=== PATIENT | female | born 1945 | race Two or more races ===

== ENCOUNTER → 2023-02-16 | Outpatient (CLI) | payer OTHER ==
[2023-02-16 11:18] LABS: Basophils # (auto) 0 10 ^3/uL (0-0.2); Basophils % (auto) 0.5 % (0.0-2.0); Eosinophils # (auto) 0.1 10 ^3/uL (0-0.8); Hematocrit 42.3 % (36.0-46.0); Hemoglobin 14.2 g/dL (12.2-16.2); Lymphocytes # (auto) 2.7 10 ^3/uL (0.4-5.4); Lymphocytes % (auto) 42.6 % (10.0-50.0); Mean Corpuscular Hemoglobin 33.3 pg (28.0-32.0); Mean Corpuscular Hgb Conc. 33.6 g/dL (32.0-36.0); Mean Corpuscular Volume 99.2 fL (80.0-100.0); Monocytes # (auto) 0.4 10 ^3/uL (0-1.3); Monocytes % (auto) 6.8 % (0.0-12.0); Neutrophils # (auto) 3.1 10 ^3/uL (1.6-8.6); Neutrophils % (auto) 48.1 % (37.0-80.0); Nucleated Red Blood Cells % 0.3 %; Red Blood Cells 4.26 10^6/uL (4.0-5.20); Red Cell Distribution Width 12.8 % (11.8-14.3); White Blood Cell 6.4 10^3/uL (4.4-10.8)
[2023-02-16 11:24] LABS: Urine Bacteria NONE SEEN /hpf (None Seen); Urine Blood Negative /uL (Negative); Urine Specific Gravity 1.019 (1.001-1.035); Urine WBC 6 /hpf (0 - 5)
[2023-02-16 12:25] LABS: Potassium 4.6 mmol/L (3.5-5.1)
[2023-02-16 12:35] LABS: Albumin 4.2 g/dL (3.4-5.0); BUN/Creatinine Ratio 15.9 (10.0-20.0); Bilirubin, Total 0.6 mg/dL (0.2-1.0); Total Protein 7.5 g/dL (6.4-8.2)
== END | disposition home or self-care (01) ==
LOC: LAB 10:41
PROVIDERS: ATTEND Nurse Practitioner
DX: I10 Essential (primary) hypertension (principal); E78.5 Hyperlipidemia, unspecified; R73.9 Hyperglycemia, unspecified
CPT/HCPCS: 36415; 80053; 80061; 81001; 83036; 84443; 85025

== ENCOUNTER → 2023-09-17 | Outpatient (CLI) | payer OTHER ==
[2023-09-17 12:10] LABS: Hematocrit 41.7 % (36.0-46.0); Mean Corpuscular Hemoglobin 33.5 pg (28.0-32.0); Mean Corpuscular Hgb Conc. 33.6 g/dL (32.0-36.0); Mean Corpuscular Volume 99.8 fL (80.0-100.0); Red Blood Cells 4.18 10^6/uL (4.0-5.20); White Blood Cell 7.3 10^3/uL (4.4-10.8)
[2023-09-17 12:13] LABS: Band Neutrophils % (manual) 0; Basophils % (manual) 0 (0.0-2.0); Blast Cells 0; Metamyelocytes % 0; Myelocytes % 0; Promyelocytes % 0; Reactive Lymphocytes 0
[2023-09-17 12:50] LABS: Alanine Aminotransferase 41 U/L (7-40); Albumin 4.5 g/dL (3.2-4.8); Alkaline Phosphatase 43 U/L (46-116); Anion Gap 6 (5-15); Aspartate Aminotransferase 41 U/L (13-40); BUN/Creatinine Ratio 10.9 (10.0-20.0); Blood Urea Nitrogen 15 mg/dL (9-23); Calcium 9.8 mg/dL (8.5-10.1); Carbon Dioxide 24 mmol/L (20-30); Chloride 105 mmol/L (98-107); Cholesterol 140 mg/dL (< 200); Glucose 102 mg/dL (74-106); LDL Cholesterol 68 mg/dL (< 100); Sodium 135 mmol/L (136-145); Triglycerides 236 mg/dL (< 150)
[2023-09-17 12:51] LABS: Bilirubin, Total 0.7 mg/dL (0.2-1.0); HDL Cholesterol 35 mg/dL (40-59); Total Protein 6.8 g/dL (5.7-8.2)
[2023-09-17 13:17] LABS: Urine Bacteria FEW /hpf (None Seen); Urine Blood Negative /uL (Negative); Urine Clarity Clear (Clear); Urine Color Colorless (Yellow); Urine Protein, UAD Negative (Negative); Urine Specific Gravity 1.005 (1.001-1.035); Urine Urobilinogen Normal (Negative); Urine WBC <1 /hpf (0 - 5); Urine pH 6.5 (5.0-8.0)
[2023-09-17 13:41] LABS: Eosinophils % (manual) 3 (0-7); Lymphocytes % (manual) 65 (10.0-50.0); Monocytes % (manual) 7 (0-12); Platelet Estimate Adequate
== END | disposition home or self-care (01) ==
LOC: LAB 11:49
PROVIDERS: ATTEND Nurse Practitioner
DX: I10 Essential (primary) hypertension (principal); E78.5 Hyperlipidemia, unspecified; R73.9 Hyperglycemia, unspecified
CPT/HCPCS: 36415; 80053; 80061; 81001; 83036; 84443; 85007; 85027

== ENCOUNTER 2024-09-24 14:51 | Inpatient (IN) | payer OTHER ==
[~2024-09-24] VITALS: Ht 177.8 cm; Wt 81.6 kg
[~2024-09-24 14:51] MED LIST: ALBU108A5 IN; AMLO1TAB22 PO; ATOR20TA PO; AZIT-43 PO; BENZ100C97 PO; CITA10TA5 PO; DOXY100C4 PO; HYDR1CAP27 PO; METH4TAB44 PO; OLME40TA9 PO; SERT-206 PO
--- NOTE | 2024-09-24 15:33 | ED.PDOC ---
HPI Comments 79 y.o female with PMHx of HTN, hyperlipidemia, gallstones, and anxiety, presents to the ED for a chief complaint of right sided chest, shoulder, back and head pain. Patient states she recently had chest congestion, went to see her PCP today and was sent to the ED due to EKG abnormalities. At this time, patient denies any pain, SOB, nausea, vomiting, fever, chills, leg swelling or pain. She denies any tobacco use. States she has a cough and feels like there is congestion in her chest, but is unable to cough it up. States she was prescribed medication by her primary physician, however it did not alleviate her symptoms. Chief Complaint: Chest Pain Time Seen by MD: 15:03 Primary Care Provider: arcadio Blank Notes: Medications, Allergies Allergies: Coded Allergies: NO KNOWN ALLERGIES (Unverified , 09/24/24) Information Source: Patient Mode of Arrival: Wheelchair Severity: Moderate Timing: Hours Duration: Since onset Location: Chest (R) Radiation: Back, Shoulder (R) Quality: Other (soreness ) Onset: At Rest Cardiac Risk Factors: Hyperlipidemia, HTN PE Risk Factors: None History of: None Modifying Factors: Nothing Associated Signs and Symptoms: None Past Medical History PAST MEDICAL HISTORY: Anxiety, Gallstones, High Lipids, HTN Surgical History: Tubal Ligation Surgical History (Other): gallstones WOOD CRAFTSMAN History: No Pertinent WOOD CRAFTSMAN History Family History Family History: Reviewed,noncontributory to illness Social History Smoker: Non-Smoker Alcohol: Denies ETOH Use Drugs: Denies Drug Use Lives In: Home Constitutional: denies: chills, diaphoresis, fatigue, fever, malaise, sweats, weakness, others EENTM: reports: nose congestion; denies: blurred vision, double vision, ear b leeding, ear discharge, ear drainage, ear pain, ear ringing, eye pain, eye redness, hearing loss, mouth pain, mouth swelling, nasal discharge, nose bleeding, nose pain, photophobia, tearing, throat pain, throat swelling, voice changes, others Respiratory: denies: cough, hemoptysis, orthopnea, SOB at rest, shortness of breath, SOB with excertion, stridor, wheezing, others Cardiovascular: reports: chest pain; denies: dizzy spells, diaphoresis, Dyspnea on exertion, edema, irregular heart beat, left arm pain, lightheadedness, palpitations, PND, syncope, others Gastrointestinal: denies: abdomen distended, abdominal pain, blood streaked bowels, constipated, diarrhea, dysphagia, difficulty swallowing, hematemesis, melena, nausea, poor appetite, poor fluid intake, rectal bleeding, rectal pain, vomiting, others Genitourinary: denies: abnormal vagina bleeding, burning, dyspareunia, dysuria, flank pain, frequency, hematuria, incontinence, pain, , vagina discharge, urgency, others Neurological: denies: dizziness, fainting, headache, left sided numbness, left sided weakness, numbness, paresthesia, pre-existing deficit, right sided numbn ess, right sided weakness, seizure, speech problems, tingling, tremors, weakness, others Musculoskeletal: denies: back pain, gout, joint pain, joint swelling, muscle pain, muscle stiffness, neck pain, others Integumetry: denies: bruises, change in color, change in hair/nails, dryness, laceration, lesions, lumps, rash, wounds, others Allergic/Immunocompromised: denies: Difficulty Healing, Frequent Infections, Hives, Itching, others Hematologic/Lymphatic: denies: anemia, blood clots, easy bleeding, easy bruising, swollen glands, others Endocrine: denies: excessive hunger, excessive sweating, excessive thirst, excessive urination, flushing, intolerance to cold, intolerance to heat, unexplained weight gain, unexplained weight loss, others Psychiatric: denies: anxiety, bipolar disorder, depression, hopeless, panic disorder, schizophrenia, sleepless, suicidal, others All Other Systems: Reviewed and Negative Physical Exam General Appearance: No Apparent Distress HEENT: Other (Vitals symmetric, moist mucous membranes) Neck: Full Range of Motion, Non-Tender, Normal Inspection, Supple Respiratory: Decreased Breath Sounds, No Accessory Muscle Use, No Respiratory Distress Cardiovascular: No Edema, No JVD, Regular Rate/Rhythm Breast Exam: Deferred Gastrointestinal: Non Tender, Soft Genitalia: Deferred Pelvic: Deferred Rectal: Deferred Extremities: No calf tenderness, Normal inspection, Normal range of motion, Non-tender, No pedal edema Neurologic: Alert (Oriented x3), Normal Affect, Normal Mood, Other (Moves all extremities. No gross focal deficit.) Cerebellar Function: NOT DONE Reflexes: NOT DONE Skin: Dry, Normal Color, Warm Lymphatic: NOT DONE EKG EKG #1: Comments Sinus rhythm, rate 84, normal NH interval, QRS prolonged at 145, QTC prolonged at 482, normal axis, left bundle-branch block, inferior and lateral T-wave inversion with ST depression EKG #2: Comments Sinus rhythm, rate 77, normal NH interval, QRS and QTC prolonged, normal axis, left bundle-branch block, T-waves are now upright in 1, 2 and aVL. This represents a change from EKG 1. Was a procedure done? Was a procedure done?: No CP Differential Dx Differential Diagnosis: Angina, Anxiety / Panic Attack, Electrolyte Disorder, NE, Pulmonary Embolus Differential Diagnosis: CHF Differential Diagnosis: Angina, Chest Wall Pain, Cholelithiasis, Costochondritis, Esophageal reflux/spasm, Gastritis, Myocardial Infarction, Pericarditis, Pneumonia X-Ray, Labs, Meds, VS Vital Signs Date Time Temp Pulse Resp B/P (MAP) Pulse Ox O2 Delivery O2 Flow Rate FiO2 09/24/24 15:44 77 09/24/24 15:08 98.0 77 17 137/60 (85) 97 09/24/24 14:57 84 Lab Test 09/24/24 18:22 09/24/24 16:27 09/24/24 15:24 09/24/24 00:00 Range/Units Troponin I High Sensitivity 20 19 18 </=34 ng/L White Blood Count 8.1 4.4-10.8 10^3/uL Red Blood Count 4.51 4.0-5.20 10^6/uL Hemoglobin 14.9 12.2-16.2 g/dL Hematocrit 44.5 36.0-46.0 % Mean Corpuscular Volume 98.6 80.0-100.0 fL Mean Corpuscular Hemoglobin 33.0 H 28.0-32.0 pg Mean Corpuscular Hemoglobin Concent 33.5 32.0-36.0 g/dL Red Cell Distribution Width 13.1 11.8-14.3 % Platelet Count 150 140-450 10^3/uL Mean Platelet Volume 8.6 6.9-10.8 fL Neutrophils (%) (Auto) 49.5 37.0-80.0 % Lymphocytes (%) (Auto) 43.1 10.0-50.0 % Monocytes (%) (Auto) 6.3 0.0-12.0 % Eosinophils (%) (Auto) 0.8 0.0-7.0 % Basophils (%) (Auto) 0.3 0.0-2.0 % Neutrophils # (Auto) 4.0 1.6-8.6 10 ^3/uL Lymphocytes # (Auto) 3.5 0.4-5.4 10 ^3/uL Monocytes # (Auto) 0.5 0-1.3 10 ^3/uL Eosinophils # (Auto) 0.1 0-0.8 10 ^3/uL Basophils # (Auto) 0 0-0.2 10 ^3/uL Nucleated Red Blood Cells 0.1 % Sodium Level 141 136-145 mmol/L Potassium Level 4.3 3.5-5.1 mmol/L Chloride Level 105 98-107 mmol/L Carbon Dioxide Level 28 20-31 mmol/L Anion Gap 8 5-15 Blood Urea Nitrogen 20 9-23 mg/dL Creatinine 1.59 H 0.550-1.02 mg/dL Glomerular Filtration Rate Calc 33 >90 mL/min BUN/Creatinine Ratio 12.6 10.0-20.0 Serum Glucose 159 H 74-106 mg/dL Calcium Level 10.8 H 8.7-10.4 mg/dL Magnesium Level 1.9 1.6-2.6 mg/dL Total Bilirubin 0.4 0.2-1.0 mg/dL Aspartate Amino Transferase (AST) 39 13-40 U/L Alanine Aminotransferase (ALT) 65 H 7-40 U/L Alkaline Phosphatase 51 46-116 U/L B-Type Natriuretic Peptide 34.59 0-100 pg/mL Total Protein 6.5 5.7-8.2 g/dL Albumin 4.7 3.2-4.8 g/dL Urine Color Light-yellow Yellow Urine Clarity Clear Clear Urine pH 7.0 5.0-9.0 Urine Specific [place] 1.015 1.001-1.035 Urine Protein Negative Negative Urine Ketones Negative Negative Urine Blood Negative Negative /uL Urine Nitrite Negative Negative Urine Bilirubin Negative Negative Urine Urobilinogen Normal Negative mg/dL Urine Leukocyte Esterase 1+ Negative /uL Urine RBC 2 0 - 4 /hpf Urine Microscopic WBC 2 0-5 /HPF Urine Squamous Epithelial Cells Few <5 /hpf Urine Bacteria None seen None Seen /hpf Urine Glucose Normal Normal mg/dL [facility] [id number] [facility] [address] Ph: [phone] DIAGNOSTIC IMAGING Diagnostic Imaging Report : [id number] Signed PATIENT: CECILIO HUNTER ACCT: [id number] UNIT: [id number] : 1945 LOC: ER ROOM / BED: / AGE / SEX: 79 / F ADM STATUS: REG ER SERVICE 1500 ORDERING PHYSICIAN: CARLI WESTON MD PROCEDURE(s): CXRP - CHEST PORTABLE REASON: CP ORDER NUMBER(s): [id number], ACCESSION NUMBER(s): [id number] CHEST RADIOGRAPH Indication: CP Technique: Single frontal view of the chest was obtained COMPARISON: None FINDINGS: Lines and Tubes: None Lungs: Bibasilar atelectasis versus consolidation. Hypoinflated lungs. Pleura: No effusion. No pneumothorax. Cardiomediastinal contours: Unremarkable Bones: Unremarkable IMPRESSION: 1. Bibasilar atelectasis versus consolidation. Hypoinflated lungs. ATED BY: GENARO RUIZ MD DICTATED DATE/TIME: 09/24/241540 SIGNED BY: GENARO RUIZ MD SIGNED DATE/TIME: 09/24/241540 CC: X-Ray, Labs, Meds, VS Comment 79 y.o female with PMHx of HTN, hyperlipidemia, gallstones, and anxiety complaining of chest congestion and right-sided chest pain Vitals unremarkable Exam remarkable for diminished breath sounds at both bases Rhythm strip independently interpreted by me: Sinus rhythm, rate 77, no ectopy. Chest x-ray IMPRESSION: 1. Bibasilar atelectasis versus consolidation. Hypoinflated lungs. CBC unremarkable, metabolic panel remarkable for creatinine 1.59, BNP and serial troponins negative, lactate pending Patient treated with the following in the ED: Aspirin 325 mg p.o., Rocephin 1 g IV, Zithromax 1 g IV On re-evaluation, patient is resting comfortably with stable vitals. Plan is to admit the patient for IV antibiotics and Cardiology evaluation due to dynamic EKG changes. Time of 1ST Reevaluation: 15:33 Reevaluation 1ST: Unchanged Patient Education/Counseling: Diagnosis, Treatment, Prognosis Family Education/Counseling: No Family Present Departure 1 Departure Time of Disposition: 20:36 Impression: Primary Impression: Chest pain with high risk of acute coronary syndrome Additional Impression: Pneumonia Qualified Codes: J18.9 - Pneumonia, unspecified organism Disposition: ADMITTED INPATIENT Admit to: Tele Condition: Guarded Critical Care Note Critical Care Time?: No Stability Stability form required: No Heart Score Heart Score: Heart Score Response (Comments) Value History Slightly Suspicious [address]-Deviation 2 Age >65 2 Risk Factors >3 or Hx ASHD 2 Troponin Normal limit 0 Total 6 I personally scribed for DANIEL HERZOG MD ([facility]) on 09/24/24 at 15:33. Electronically submitted by Dona Santana ([facility]). I personally scribed for DANIEL HERZOG MD ([facility]) on 09/24/24 at 16:45. Electronically submitted by Dona Santana ([facility]). DANIEL HERZOG MD Sep 24, 2024 15:33
[2024-09-24 15:42] LABS: Basophils # (auto) 0 10 ^3/uL (0-0.2); Basophils % (auto) 0.3 % (0.0-2.0); Eosinophils # (auto) 0.1 10 ^3/uL (0-0.8); Eosinophils % (auto) 0.8 % (0.0-7.0); Hematocrit 44.5 % (36.0-46.0); Hemoglobin 14.9 g/dL (12.2-16.2); Lymphocytes # (auto) 3.5 10 ^3/uL (0.4-5.4); Lymphocytes % (auto) 43.1 % (10.0-50.0); Mean Corpuscular Hgb Conc. 33.5 g/dL (32.0-36.0); Mean Corpuscular Volume 98.6 fL (80.0-100.0); Monocytes # (auto) 0.5 10 ^3/uL (0-1.3); Monocytes % (auto) 6.3 % (0.0-12.0); Neutrophils % (auto) 49.5 % (37.0-80.0); Nucleated Red Blood Cells % 0.1 %; Platelet Count (auto) 150 10^3/uL (140-450); Red Blood Cells 4.51 10^6/uL (4.0-5.20); Red Cell Distribution Width 13.1 % (11.8-14.3); White Blood Cell 8.1 10^3/uL (4.4-10.8)
--- NOTE | 2024-09-24 15:43 | DVH ---
CHEST RADIOGRAPH Indication: CP Technique: Single frontal view of the chest was obtained COMPARISON: None FINDINGS: Lines and Tubes: None Lungs: Bibasilar atelectasis versus consolidation. Hypoinflated lungs. Pleura: No effusion. No pneumothorax. Cardiomediastinal contours: Unremarkable Bones: Unremarkable IMPRESSION: 1. Bibasilar atelectasis versus consolidation. Hypoinflated lungs.
--- NOTE | 2024-09-24 15:46 | ECG ---
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
[2024-09-24 16:03] LABS: Albumin 4.7 g/dL (3.2-4.8); Alkaline Phosphatase 51 U/L (46-116); Anion Gap 8 (5-15); Aspartate Aminotransferase 39 U/L (13-40); BUN/Creatinine Ratio 12.6 (10.0-20.0); Bilirubin, Total 0.4 mg/dL (0.2-1.0); Blood Urea Nitrogen 20 mg/dL (9-23); Carbon Dioxide 28 mmol/L (20-31); Chloride 105 mmol/L (98-107); Magnesium 1.9 mg/dL (1.6-2.6); Potassium 4.3 mmol/L (3.5-5.1); Sodium 141 mmol/L (136-145)
[2024-09-24 16:04] LABS: Total Protein 6.5 g/dL (5.7-8.2)
[2024-09-24 16:12] LABS: Alanine Aminotransferase 65 U/L (7-40); Calcium 10.8 mg/dL (8.7-10.4); Glucose 159 mg/dL (74-106)
[2024-09-24 17:23] LABS: Urine Bacteria None Seen /hpf (None Seen)
[2024-09-24 18:31] LABS: Urine Blood Negative /uL (Negative); Urine Clarity Clear (Clear); Urine Color Light-Yellow (Yellow); Urine Protein, UAD Negative (Negative); Urine Specific Gravity 1.015 (1.001-1.035); Urine Squamous Epithelial Cell FEW /hpf (<5); Urine Urobilinogen Normal (Negative); Urine WBC 2 /HPF (0-5)
[2024-09-24] MEDS ORDERED: NITROGLYCERIN 0.4 MG SL TAB SL PRN (22:15)
[2024-09-24] MEDS ORDERED: HYDROcodone-ACET 5/325MG TAB PO PRN (22:15)
[2024-09-24] MEDS ORDERED: MORPHINE SULFATE INJ 2 MG/ml SYRG IV PRN (22:15)
[2024-09-25 01:25] LABS: Rapid Influenza A Negative (Negative); Rapid Influenza B Negative (Negative)
[2024-09-25 01:26] LABS: COVID19 ANTIGEN SOFIA FIA NEGATIVE (NEGATIVE)
[2024-09-25] MEDS: CYCLOBENZAPRINE HCL 10 MG TAB PO ONE (01:29)
[2024-09-25] MEDS: ASPirin 325 MG TAB PO ONE (01:29)
[2024-09-25] MEDS: cefTRIAXone 1GM/50ML D5W 50 ML IV ONE (01:42)
[2024-09-25] MEDS: SODIUM CHLORIDE 0.9% 1,000 ML IV ONE (01:42)
--- NOTE | 2024-09-25 01:51 | DVHHPRES ---
History of Present Illness Resident Creating Document: LÁZRAO LOPEZ Reason for Visit: CHEST PAIN History of Present Illness An 79-year-old female with a past medical history of hypertension, hyperlipidemia, gallstones, and anxiety presents to the emergency department with right-sided chest, shoulder, and back pain, which she describes as a muscle contraction radiating to the neck and chest. She reports that the area felt swollen, though no significant edema was observed. The pain has been present for a while, but she sought evaluation at urgent care earlier today, where an abnormal EKG prompted her transfer to the ED for further evaluation. On arrival, she denies associated symptoms such as shortness of breath, fever, chills, nausea, vomiting, or leg swelling. She does report a cough with a sensa tion of congestion in her chest, though she is unable to expectorate. She denies tobacco use. Home meds: Amlodipine 5 mg per day, citalopram 10 mg per day, olmesartan+hydrochlorothiazide, albuterol per needed Cardiovascular: HTN, hyperipidemia Hepatobiliary: Cholelithiasis Psych: Anxiety Past Surgical History: Tubal Ligation Review of Systems Constitutional: No: Fever, Chills, Sweats, Weakness, Malaise, Other Eyes: No: Pain, Vision change, Conjunctivae inflammation, Eyelid inflammation, Other, Redness ENT: No: Ear pain, Ear discharge, Nose pain, Nose discharge, Nose congestion, Mouth pain, Mouth swelling, Throat pain, Throat swelling, Other Respiratory: Cough; No: Dry, Shortness of breath, SOB with excertion, Wheezing, Hemoptysis, Pleuritic Pain, Sputum, Wheezing, Other Cardiovascular: Chest Pain; No: Palpitations, Orthopnea, Paroxysmal Noc. Dyspnea, Edema, Lt Headedness, Other Gastrointestinal: No: Nausea, Vomiting, Abdominal Pain, Diarrhea, Constipation, Melena, Hematochezia, Other Genitourinary: No Dysuria, No Frequency, No Incontinence, No Hematuria, No Retention, No Other Musculoskeletal: No: other, neck pain, shoulder pain, arm pain, back pain, hand pain, leg pain, foot pain Skin: No: Rash, Lesions, Jaundice, Bruising, Other Neurological: No: Weakness, Numbness, Incoordination, Change in speech, Confusion, Seizures, Other Allergies: Coded Allergies: NO KNOWN ALLERGIES (Unverified , 09/24/24) Medications Current Medications Medications Dose Ordered Sig/Josué Route Start Time Stop Time Status Last Admin Dose Admin Morphine Sulfate 2 mg Q30M PRN IV 09/24/24 22:15 Nitroglycerin 0.4 mg Q5MINP PRN SL 09/24/24 22:15 Ceftriaxone Sodium 50 ml @ 100 mls/hr Q24H IV 09/25/24 09:00 Azithromycin 250 ml @ 125 mls/hr DAILY IV 09/25/24 10:00 Acetaminophen/ Hydrocodone Bitart 1 tab Q6HPRN PRN PO 09/24/24 22:15 Exam Vital Signs Vital Signs Date Time Temp Pulse Resp B/P (MAP) Pulse Ox O2 Delivery O2 Flow Rate FiO2 09/24/24 21:47 98.6 78 16 147/74 (98) 99 98.6 Labs/Xrays Labs Test 09/25/24 00:00 09/24/24 20:39 09/24/24 18:22 09/24/24 15:24 Range/Units Influenza Type A Antigen Negative Negative Influenza Type B Antigen Negative Negative SARS-CoV-2 Antigen (Rapid) Negative NEGATIVE Lactic Acid Level 1.7 0.4-2.0 mmol/L Troponin I High Sensitivity 20 </=34 ng/L White Blood Count 8.1 4.4-10.8 10^3/uL Red Blood Count 4.51 4.0-5.20 10^6/uL Hemoglobin 14.9 12.2-16.2 g/dL Hematocrit 44.5 36.0-46.0 % Mean Corpuscular Volume 98.6 80.0-100.0 fL Mean Corpuscular Hemoglobin 33.0 H 28.0-32.0 pg Mean Corpuscular Hemoglobin Concent 33.5 32.0-36.0 g/dL Red Cell Distribution Width 13.1 11.8-14.3 % Platelet Count 150 140-450 10^3/uL Mean Platelet Volume 8.6 6.9-10.8 fL Neutrophils (%) (Auto) 49.5 37.0-80.0 % Lymphocytes (%) (Auto) 43.1 10.0-50.0 % Monocytes (%) (Auto) 6.3 0.0-12.0 % Eosinophils (%) (Auto) 0.8 0.0-7.0 % Basophils (%) (Auto) 0.3 0.0-2.0 % Neutrophils # (Auto) 4.0 1.6-8.6 10 ^3/uL Lymphocytes # (Auto) 3.5 0.4-5.4 10 ^3/uL Monocytes # (Auto) 0.5 0-1.3 10 ^3/uL Eosinophils # (Auto) 0.1 0-0.8 10 ^3/uL Basophils # (Auto) 0 0-0.2 10 ^3/uL Nucleated Red Blood Cells 0.1 % Sodium Level 141 136-145 mmol/L Potassium Level 4.3 3.5-5.1 mmol/L Chloride Level 105 98-107 mmol/L Carbon Dioxide Level 28 20-31 mmol/L Anion Gap 8 5-15 Blood Urea Nitrogen 20 9-23 mg/dL Creatinine 1.59 H 0.550-1.02 mg/dL Glomerular Filtration Rate Calc 33 >90 mL/min BUN/Creatinine Ratio 12.6 10.0-20.0 Serum Glucose 159 H 74-106 mg/dL Calcium Level 10.8 H 8.7-10.4 mg/dL Magnesium Level 1.9 1.6-2.6 mg/dL Total Bilirubin 0.4 0.2-1.0 mg/dL Aspartate Amino Transferase (AST) 39 13-40 U/L Alanine Aminotransferase (ALT) 65 H 7-40 U/L Alkaline Phosphatase 51 46-116 U/L B-Type Natriuretic Peptide 34.59 0-100 pg/mL Total Protein 6.5 5.7-8.2 g/dL Albumin 4.7 3.2-4.8 g/dL Test 09/24/24 00:00 Range/Units Urine Color Light-yellow Yellow Urine Clarity Clear Clear Urine pH 7.0 5.0-9.0 Urine Specific [place] 1.015 1.001-1.035 Urine Protein Negative Negative Urine Ketones Negative Negative Urine Blood Negative Negative /uL Urine Nitrite Negative Negative Urine Bilirubin Negative Negative Urine Urobilinogen Normal Negative mg/dL Urine Leukocyte Esterase 1+ Negative /uL Urine RBC 2 0 - 4 /hpf Urine Microscopic WBC 2 0-5 /HPF Urine Squamous Epithelial Cells Few <5 /hpf Urine Bacteria None seen None Seen /hpf Urine Glucose Normal Normal mg/dL Assessment/Plan Assessment/Plan Initial EKG showed LBB but did not meet criteria for STEMI. Serologic testing for influenza and COVID-19 was negative. Physical exam was remarkable for diminished breath sounds bilaterally. A chest X-ray demonstrated bibasilar atelectasis versus consolidation with hypoinflated lungs Laboratory workup was notable for acute kidney injury (REE), though suspected chronic kidney disease (CKD), given a prior history of abnormal creatinine two years ago (current Cr 1.59). BNP and serial troponins were negative, and lactate was unremarkable. The patient was started on IV fluids, aspirin, and empiric antibiotics (Rocephin and azithromycin). Given the dynamic EKG changes, she was admitted for IV antibiotics, further cardiac evaluation, and continued monitoring. #Pneumonia gram +/gram neg #Chest pain: likely musculoskeletal #ACS rule out #REE vasomotor mediated on possible CKD #Hypertension crisis #Hyperlipidemia Admit Telemetry NS 100cc/h Ceftriaxone and azithromycin IV Echo and BNP Labs for tomorrow morning Start amlodipine 10 mg Muscle relaxant [place] for pain per needed Cardiology consult Case discussed with Dr Thomas Time spent on care 23 min Plan discussed with: Patient, Other (rn) My Orders Orders - LÁZARO LOPEZ RESIDENT Procedure Category Date Status Time Admit ADMIT 09/24/24 Transmitted 22:08 Morphine Sulfate PHA 09/24/24 In Process Injection 22:15 Oxygen By Nasal RT 09/24/24 Transmitted Cannula 22:08 Stat Ekg For Chest NOÉ 09/24/24 In Process Pain 22:08 Notify Of Changes NOÉ 09/24/24 In Process From Base 22:08 Potato Grader For NOÉ 09/24/24 In Process 24 Hours 22:08 Emergency Dysrhythmia NOÉ 09/24/24 In Process Protocol 22:08 Rhythm Strips Once NOÉ 09/24/24 In Process Every Shift 22:08 Nitroglycerin PHA 09/24/24 In Process Sublingual (Ntrostat 22:15 Ceftriaxone 1gm/50ml PHA 09/25/24 In Process D5w (Rocephin) 09:00 Azithromycin 500mg/ PHA 09/25/24 In Process 250ml (Zithromax 50 10:00 Urine Bacterial TONYA 09/24/24 In Process Culture 22:08 Respiratory Culture TONYA 09/24/24 Logged W/ Gs 22:08 Mrsa Screen TONYA 09/24/24 Logged 22:08 Sodium Chloride 0.9% PHA 2/16/25 In Process 22:15 Hydrocodone-Acet PHA 09/24/24 In Process 5/325mg Tab ([place] 22:15 Complete Blood Count LAB 09/25/24 Logged 04:00 Phosphorus LAB 09/25/24 Logged 04:00 Magnesium LAB 09/25/24 Logged 04:00 Lipid Panel LAB 09/25/24 Logged 04:00 Thyroid Stimulating LAB 09/25/24 Logged Hormone 04:00 Vitamin B12 LAB 09/25/24 Logged 04:00 Vitamin D, 25-Hydroxy LAB 09/25/24 Logged 04:00 Comprehensive LAB 09/25/24 Logged Metabolic Panel 04:00 Date of Service: Sep 24, 2024 Billing Provider: MARINA THOMAS MD Common Visit Codes: 55267-SRFHIFV INP/OBS CARE (HIGH) Secondary Visit Codes: [id number] CARE PLAN 30 MINUTES LÁZARO LOPEZ RESIDENT Sep 25, 2024 01:51 MARINA THOMAS MD Sep 25, 2024 14:12
[2024-09-25] MEDS: AZITHROMYCIN 500MG/ 250ML 250 ML IV ONE (02:10)
[2024-09-25] MEDS: amLODIPine BESYLATE 5 MG TAB PO SCH (02:21)
[2024-09-25 03:21] VITALS: PULSE 70; RESP 18; O2SAT 96
[2024-09-25 05:44] LABS: Basophils # (auto) 0 10 ^3/uL (0-0.2); Basophils % (auto) 0.3 % (0.0-2.0); Eosinophils # (auto) 0.1 10 ^3/uL (0-0.8); Eosinophils % (auto) 1.4 % (0.0-7.0); Hematocrit 41.2 % (36.0-46.0); Lymphocytes # (auto) 3.2 10 ^3/uL (0.4-5.4); Lymphocytes % (auto) 40.4 % (10.0-50.0); Mean Corpuscular Hemoglobin 33.6 pg (28.0-32.0); Mean Corpuscular Volume 98.7 fL (80.0-100.0); Monocytes # (auto) 0.6 10 ^3/uL (0-1.3); Monocytes % (auto) 7.3 % (0.0-12.0); Neutrophils # (auto) 4.1 10 ^3/uL (1.6-8.6); Neutrophils % (auto) 50.6 % (37.0-80.0); Nucleated Red Blood Cells % 0.1 %; Platelet Count (auto) 128 10^3/uL (140-450); Red Blood Cells 4.18 10^6/uL (4.0-5.20); Red Cell Distribution Width 12.8 % (11.8-14.3)
[2024-09-25 06:34] LABS: Albumin 4.2 g/dL (3.2-4.8); Alkaline Phosphatase 50 U/L (46-116); Anion Gap 8 (5-15); Aspartate Aminotransferase 35 U/L (13-40); BUN/Creatinine Ratio 16.1 (10.0-20.0); Blood Urea Nitrogen 22 mg/dL (9-23); Calcium 10.2 mg/dL (8.7-10.4); Carbon Dioxide 25 mmol/L (20-31); Chloride 106 mmol/L (98-107); Magnesium 1.8 mg/dL (1.6-2.6); Potassium 4.2 mmol/L (3.5-5.1); Sodium 139 mmol/L (136-145)
[2024-09-25 06:35] LABS: Alanine Aminotransferase 56 U/L (7-40); Bilirubin, Total 0.2 mg/dL (0.2-1.0); Glucose 123 mg/dL (74-106); Phosphorus 3.9 mg/dL (2.4-5.1)
[2024-09-25 06:49] LABS: LDL Cholesterol 64 mg/dL (< 100)
[2024-09-25 06:50] LABS: Cholesterol 140 mg/dL (< 200); HDL Cholesterol 40 mg/dL (40-59); Triglycerides 212 mg/dL (< 150)
--- NOTE | 2024-09-25 08:17 | ECG ---
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
[2024-09-25] MEDS: cefTRIAXone 1GM/50ML D5W 50 ML IV SCH (09:04)
[2024-09-25] MEDS: AZITHROMYCIN 500MG/ 250ML 250 ML IV SCH (09:38)
--- NOTE | 2024-09-25 11:13 | DVHSR ---
APPROVED REPORT EXAM: Two-dimensional and M-mode echocardiogram with Doppler and color Doppler. Blood Pressure: 103/40 mmHg INDICATION Rule out CHF RISK FACTORS Height: 70, Weight: 177 DIMENSIONS LVDd5.0 (3.8-5.7cm)LA (2D)4.4 (1.9-4.0cm)Aortic Root3.3 (2.0-3.7cm) LVDs4.5 (2.5-4.0cm)LA (MM) (1.9-4.0cm)Aortic Cusp Exc1.8 (1.5-2.0cm) EF (%) 25.0 (55-70%)Rt. Atrium3.6 (1.9-4.0cm)Asc. Aorta cm IVSd1.0 (0.7-1.1cm)RV (D) (1.8-2.4cm) PWd1.2 (0.7-1.1cm) Mitral Valve MitralMitral Stenosis E wave0.54m/sMV Mean GR.mmHg A wave1.19m/sMV Peak GR.97mmHg E/A ratio0.52D MVAcm2 DECEL [id number] 1/2 [id number] IVRTmsDop MVA1.96cm2 Aortic Valve Aortic ValveAortic Stenosis V10.87m/Margarita Mean GR.5mmHg V21.47m/Margarita Peak GR.9mmHg LVOT Diameter2.2 (1.8-2.4cm)Doppler AVA2.25cm2 AI P 1/2 Upmz064.40ms Pulmonic Valve V21.68m/s Tricuspid Valve TR Velocity2.49m/s [id number] Conclusion lvef 20% by visual estimate dilated LV grade 1 diastolic dysfunction normal RV function left atrium enlarged
--- NOTE | 2024-09-25 12:57 | DVH ---
Ultrasound liver INDICATION: transamnitis villasenor Technique: 2-D real-time ultrasound was performed with axial and sagittal images submitted for evalu ation. FINDINGS: Liver measures 14.3 cm without mass and is echogenic in appearance. Gallbladder has been removed. Common duct measures 8.6 mm. No free fluid IMPRESSION: 1. Echogenic liver either due to steatosis and or hepatocellular disease without mass. No biliary obs truction
--- NOTE | 2024-09-25 15:31 | DVHPNRES ---
Progress Note Date Seen: Sep 25, 2024 Resident Creating Document: JOSE MARTIN FALK RESIDENT Medical Necessity Reason Pt with a Central, PICC or Fol: No Subjective Review of Systems An 79-year-old female with a past medical history of hypertension, hyperlipidemia, gallstones, and anxiety presents to the emergency department with right-sided chest, shoulder, and back pain, which she describes as a muscle contraction radiating to the neck and chest. Patient reports that she had flu- like symptoms, sore throat and cold along with dry cough, she could not expectorate therefore she started coughing, subsequently she experienced right- sided chest/shoulder pain increased on deep breaths, no radiation and unrelated to food/exertion. She reports that the area felt swollen, though no significant edema was observed. The pain has been present for a while, but she sought evaluation at urgent care earlier today, where an abnormal EKG prompted her transfer to the ED for further evaluation. On arrival, she denies associated symptoms such as shortness of breath, fever, chills, nausea, vomiting, or leg swelling. She does report a cough with a sensation of congestion in her chest, though she is unable to expectorate. She denies tobacco use. Home meds: Amlodipine 5 mg per day, citalopram 10 mg per day, olmesartan+hydrochlorothiazide, albuterol per needed Patient seen and examined at the bedside. Cardiology consulted, echocardiogram pending. Objective vital signs Vital Sign Date Time Temp Pulse Resp B/P (MAP) Pulse Ox O2 Delivery O2 Flow Rate FiO2 09/25/24 13:00 68 18 119/49 (72) 96 09/25/24 11:00 98.8 98.8 09/25/24 07:36 Room Air* 0 21 21 medications Current Medications Medications Dose Ordered Sig/Josué Route Start Time Stop Time Status Last Admin Dose Admin Morphine Sulfate 2 mg Q30M PRN IV 09/24/24 22:15 Nitroglycerin 0.4 mg Q5MINP PRN SL 09/24/24 22:15 Ceftriaxone Sodium 50 ml @ 100 mls/hr Q24H IV 09/25/24 09:00 09/25/24 09:04 100 MLS/HR Azithromycin 250 ml @ 125 mls/hr DAILY IV 09/25/24 10:00 09/25/24 09:38 125 MLS/HR Acetaminophen/ Hydrocodone Bitart 1 tab Q6HPRN PRN PO 09/24/24 22:15 Amlodipine Besylate 10 mg DAILY PO 09/25/24 01:45 09/25/24 09:40 10 MG Examination Elderly female patient lying in bed, in no acute distress General: Well-built, afebrile, palor, mucosae are moist Cardiovascular: Regular S1 and S2. No murmurs, gallops or rubs. No JVD elevation. No pedal edema Respiratory: Normal B/L air entry on room air. Clear lung sounds on auscultation Abdomen: Soft, nontender, nondistended, normoactive bowel sounds, no rebound tenderness, no organomegaly, no masses Genitourinary: Deferred MSK/skin: Mobilizes 4 limbs. Skin is dry and warm Neurological: No motor, no sensitive deficits, normal speech. Pupils are isocoric and reactive. Psych/Mental Status: A/Ox4 laboratory and microbiology Laboratory Tests 09/25/24 05:18 Test 09/25/24 05:18 Range/Units Serum Glucose 123 H 74-106 mg/dL Labs and/or images reviewed: Labs reviewed by me, Image(s) reviewed by me Problem List/Assessment/Plan Problem List/Assessment/Plan pneumonia, Gram-negative and positive Bronchitis Continue ceftriaxone and azithromycin starting 09/24 Continue nebulized treatment Respiratory culture pending Congestive heart failure, systolic, LVEF 20% ? Newly diagnosed Echo shows dilated LV, LVEF 20%, normal RV function. LA enlarged. Grade 1 diastolic dysfunction. Cardiology consulted Atypical chest pain secondary to likely bronchitis Troponin, BNP unremarkable Received 1 dose of aspirin 325 mg Cardiology consulted REE, vasomotor mediated Creatinine downtrending Uncontrolled hypertension Amlodipine 10 mg daily Transaminitis secondary to hepatic steatosis ALT 60, downtrending Liver ultrasound shows echogenic liver either due to steatosis or hepatocellular disease without mass. No biliary obstruction. Thrombocytopenia Monitor Dyslipidemia Monitor Goals of care discussed with the patient for more than 28 minutes, full code status Plan discussed with patient in which all questions have been answered Case discussed with Dr. Isabel Plan discussed with: Patient My Orders My Orders Orders - JOSE MARTIN FALK Procedure Category Date Status Time LIVER US 09/25/24 Resulted 12:23 JOSE MARTIN FALK Sep 25, 2024 15:30
--- NOTE | 2024-09-25 16:14 | DVHINCON2 ---
TAYA ALCALA [facility] 09/25/24 1614: Date Seen: Sep 25, 2024 Referring Physician MD [place] resident Reason for Consultation Abnormal EKG, chest pain History of Present Illness This is an 79-year-old female patient who presents to the emergency room with chief complaint of abnormal EKG. The patient was first seen at urgent care where she went to follow up on cough and congestion that she has had for two wee ks. She also mentions right-sided chest pain. She states that an EKG was done and that she was told it was abnormal and that she should come to the emergency room for further evaluation. Cardiology has now been consulted for further workup. The patient describes chest pain that is provoked by cough, sharp in nature, right-sided and nonradiating. Initial twelve lead electrocardiogram reveals normal sinus rhythm with left bundle branch block. Initial troponin level was negative. Significant past medical history includes hypertension and dyslipidemia. The patient does not see a lease administration supervisor in the outpatient setting. Past Medical History Past medical history reviewed. No other significant than mentioned above. Past Surgical History Cholecystectomy Tubal ligation 48 years ago Family History Family history reviewed. Social History Denies the use of tobacco, alcohol or illicit drugs. Allergies: Coded Allergies: NO KNOWN ALLERGIES (Unverified , 09/24/24) Home Meds Home medications reviewed. Current Medications Current Medications Medications (Trade) Dose Ordered Sig/Josué Route PRN Reason Start Time Stop Time Status Last Admin Morphine Sulfate 2 mg Q30M PRN IV FOR CHEST PAIN 09/24/24 22:15 Nitroglycerin (Ntrostat Sublingual) 0.4 mg Q5MINP PRN SL FOR CHEST PAIN 09/24/24 22:15 Ceftriaxone Sodium 50 ml @ 100 mls/hr Q24H IV 09/25/24 09:00 09/25/24 09:04 Azithromycin 250 ml @ 125 mls/hr DAILY IV 09/25/24 10:00 09/25/24 09:38 Acetaminophen/ Hydrocodone Bitart ([place] 5/325MG Tab) 1 tab Q6HPRN PRN PO PAIN SCALE 1 THRU 6 09/24/24 22:15 Amlodipine Besylate (Norvasc Tablet) 10 mg DAILY PO 09/25/24 01:45 09/25/24 09:40 Review of Systems Constitutional: No symptom reported Ears, Nose, & Throat: No symptom reported Eyes: No symptom reported Neurological: No symptoms reported Pulmonary/Respiratory: Cough, congestion Cardiovascular: No symptom reported Gastrointestinal: No symptom reported Genitourinary: No symptom reported Musculoskeletal: No symptom reported Skin: No symptom reported Psychiatric: No symptom reported Endocrine: No symptom reported Hematologic/Lymphatic: No symptom reported Vital Signs Vital Signs Date Time Temp Pulse Resp B/P (MAP) Pulse Ox O2 Delivery O2 Flow Rate FiO2 09/25/24 15:00 73 12 117/35 (62) 94 09/25/24 11:00 98.8 98.8 09/25/24 07:36 Room Air* 0 21 21 Physical Exam General Appearance: Cooperative. Well-developed. Well-nourished. No acute distress. Pulmonary/Respiratory: Diminished bilateral lower lobe sounds Cardiovascular/Chest: Regular rate and rhythm. Peripheral Pulses: 2+ Radial (R). 2+ Radial (L). 2+ Pedal (R). 2+ Pedal (L) Abdominal Exam: Normal bowel sounds. Ankle Exam: Negative ankle edema Lower extremities: Negative lower extremity edema Neuro/Mental Status: A/OX4, coherent. Thoughts/Psych: Normal thought pattern. Appropriate mood and affect. Good judgment and insight. Appearance: No acute distress. Skin Exam: Normal inspection. Normal color. Warm and dry. Labs/Diagnostic Data Labs Test 09/25/24 05:18 09/25/24 00:00 09/24/24 20:39 09/24/24 18:22 Range/Units White Blood Count 8.0 4.4-10.8 10^3/uL Red Blood Count 4.18 4.0-5.20 10^6/uL Hemoglobin 14.0 12.2-16.2 g/dL Hematocrit 41.2 36.0-46.0 % Mean Corpuscular Volume 98.7 80.0-100.0 fL Mean Corpuscular Hemoglobin 33.6 H 28.0-32.0 pg Mean Corpuscular Hemoglobin Concent 34.0 32.0-36.0 g/dL Red Cell Distribution Width 12.8 11.8-14.3 % Platelet Count 128 L 140-450 10^3/uL Mean Platelet Volume 8.5 6.9-10.8 fL Neutrophils (%) (Auto) 50.6 37.0-80.0 % Lymphocytes (%) (Auto) 40.4 10.0-50.0 % Monocytes (%) (Auto) 7.3 0.0-12.0 % Eosinophils (%) (Auto) 1.4 0.0-7.0 % Basophils (%) (Auto) 0.3 0.0-2.0 % Neutrophils # (Auto) 4.1 1.6-8.6 10 ^3/uL Lymphocytes # (Auto) 3.2 0.4-5.4 10 ^3/uL Monocytes # (Auto) 0.6 0-1.3 10 ^3/uL Eosinophils # (Auto) 0.1 0-0.8 10 ^3/uL Basophils # (Auto) 0 0-0.2 10 ^3/uL Nucleated Red Blood Cells 0.1 % Sodium Level 139 136-145 mmol/L Potassium Level 4.2 3.5-5.1 mmol/L Chloride Level 106 98-107 mmol/L Carbon Dioxide Level 25 20-31 mmol/L Anion Gap 8 5-15 Blood Urea Nitrogen 22 9-23 mg/dL Creatinine 1.37 H 0.550-1.02 mg/dL Glomerular Filtration Rate Calc 39 >90 mL/min BUN/Creatinine Ratio 16.1 10.0-20.0 Serum Glucose 123 H 74-106 mg/dL Calcium Level 10.2 8.7-10.4 mg/dL Phosphorus Level 3.9 2.4-5.1 mg/dL Magnesium Level 1.8 1.6-2.6 mg/dL Total Bilirubin 0.2 0.2-1.0 mg/dL Aspartate Amino Transferase (AST) 35 13-40 U/L Alanine Aminotransferase (ALT) 56 H 7-40 U/L Alkaline Phosphatase 50 46-116 U/L B-Type Natriuretic Peptide 27.23 0-100 pg/mL Total Protein 6.0 5.7-8.2 g/dL Albumin 4.2 3.2-4.8 g/dL Triglycerides Level 212 H < 150 mg/dL Cholesterol Level 140 < 200 mg/dL LDL Cholesterol 64 < 100 mg/dL HDL Cholesterol 40 40-59 mg/dL Vitamin B12 Level 561 211-911 pg/mL Vitamin D 25-Hydroxy 77.1 30.0-100 ng/mL Thyroid Stimulating Hormone (TSH) 1.25 0.55-4.78 uIU/mL Influenza Type A Antigen Negative Negative Influenza Type B Antigen Negative Negative SARS-CoV-2 Antigen (Rapid) Negative NEGATIVE Lactic Acid Level 1.7 0.4-2.0 mmol/L Troponin I High Sensitivity 20 </=34 ng/L Test 09/24/24 00:00 Range/Units Urine Color Light-yellow Yellow Urine Clarity Clear Clear Urine pH 7.0 5.0-9.0 Urine Specific [place] 1.015 1.001-1.035 Urine Protein Negative Negative Urine Ketones Negative Negative Urine Blood Negative Negative /uL Urine Nitrite Negative Negative Urine Bilirubin Negative Negative Urine Urobilinogen Normal Negative mg/dL Urine Leukocyte Esterase 1+ Negative /uL Urine RBC 2 0 - 4 /hpf Urine Microscopic WBC 2 0-5 /HPF Urine Squamous Epithelial Cells Few <5 /hpf Urine Bacteria None seen None Seen /hpf Urine Glucose Normal Normal mg/dL Assessment Acute on chronic compensated HFrEF, NYHA class II, newly diagnosed Noncardiac chest pain, likely pleuritic Hypertension Dyslipidemia Pneumonia Acute kidney injury Plan/Recommendation We will continue with the following plan/recommendations (Dr. Guillen): * Transthoracic echocardiogram reveals EF 20% * Initiate guideline directed medical therapy for CHF as renal function permits * Avoid CCB's given reduced EF * Strict intake and output, daily weights, maintain fluid restriction * Cardiac surveillance * Coronary angiogram-patient refused Case discussed and reviewed with . Given new finding of reduced ejection fraction, the patient was offered ischemic workup with a coronary angiogram. The procedure was discussed with the patient in full detail. At this time, the patient is refusing and does not want to undergo the procedure. We will continue with medical management. Thank you for allowing us to care for this patient. Please call with any questions or concerns. Critical care time spent: 44 minutes This medical document was created using an electronic medical record system with voice recognition software and computerized dictation system. Although this document has been carefully reviewed, there might still be some phonetic and typographical errors. Occasional wrong-word or ``sound-alike substitutions may have occurred due to the inherent limitations of voice recognition software. These areas are purely typographical due to imperfections of the software programs and do not reflect any compromise in the patient's medical care. Please read the chart carefully and recognize, using context, where these substitutions have occurred. Plan discussed with: Patient, Other (Bedside RN) NYHA Physical activity limitations: Class2(Slight)fatigue,sob (palpitatns, angina w activityv) Date of Service: Sep 25, 2024 Billing Provider: TAYA ALCALA Cardiology Common Codes: 57829-[id number] INP/OBS CARE (High) Cardiology Consultation Codes: [id number] CONSULT <45MIN DAVID GUILLEN MD 09/25/24 1817: Allergies: Coded Allergies: NO KNOWN ALLERGIES (Unverified , 09/24/24) Plan/Recommendation severe chf with LBBB pt refused [facility] recommend HF management and GDMT to start Date of Service: Sep 25, 2024 Billing Provider: DAVID GUILLEN MD Cardiology Common Codes: NOT BILLABLE TAYA ALCALA Sep 25, 2024 16:14 DAVID GUILLEN MD Sep 25, 2024 18:17
[2024-09-25 19:25] VITALS: PULSE 80; RESP 19; O2SAT 96
[2024-09-25 23:46] VITALS: BP 144/69; PULSE 94; RESP 18; TEMP 97.9; O2SAT 98
[2024-09-25 23:50] VITALS: BP 144/69; PULSE 94; RESP 17; TEMP 97.9; O2SAT 98
[2024-09-26] VITALS (20 sets, daily range): BP systolic 105–133; BP diastolic 53–69; PULSE 64–111; RESP 11–18; TEMP 97.9–98.5; O2SAT 92–100
[2024-09-26 06:01] LABS: Basophils # (auto) 0 10 ^3/uL (0-0.2); Basophils % (auto) 0.5 % (0.0-2.0); Eosinophils # (auto) 0.1 10 ^3/uL (0-0.8); Eosinophils % (auto) 1.8 % (0.0-7.0); Hematocrit 41.3 % (36.0-46.0); Hemoglobin 13.7 g/dL (12.2-16.2); Lymphocytes # (auto) 2.7 10 ^3/uL (0.4-5.4); Lymphocytes % (auto) 40.2 % (10.0-50.0); Mean Corpuscular Hemoglobin 32.9 pg (28.0-32.0); Mean Corpuscular Hgb Conc. 33.2 g/dL (32.0-36.0); Mean Corpuscular Volume 99.1 fL (80.0-100.0); Monocytes # (auto) 0.5 10 ^3/uL (0-1.3); Monocytes % (auto) 7.5 % (0.0-12.0); Neutrophils # (auto) 3.3 10 ^3/uL (1.6-8.6); Nucleated Red Blood Cells % 0.2 %; Platelet Count (auto) 133 10^3/uL (140-450); Red Blood Cells 4.17 10^6/uL (4.0-5.20); Red Cell Distribution Width 12.6 % (11.8-14.3); White Blood Cell 6.6 10^3/uL (4.4-10.8)
[2024-09-26 06:11] LABS: INR 0.99 (0.9-1.15); Partial Thromboplastin Time 26.8 SEC (24.5-34.5); Prothrombin Time 10.5 sec (9.3-11.8)
[2024-09-26 06:12] LABS: Albumin 4.1 g/dL (3.2-4.8); Anion Gap 11 (5-15); Aspartate Aminotransferase 31 U/L (13-40); BUN/Creatinine Ratio 14.4 (10.0-20.0); Bilirubin, Total 0.4 mg/dL (0.2-1.0); Blood Urea Nitrogen 18 mg/dL (9-23); Calcium 10.1 mg/dL (8.7-10.4); Carbon Dioxide 23 mmol/L (20-31); Glucose 102 mg/dL (74-106); Magnesium 1.9 mg/dL (1.6-2.6); Potassium 3.9 mmol/L (3.5-5.1); Sodium 142 mmol/L (136-145)
[2024-09-26 06:13] LABS: Alanine Aminotransferase 49 U/L (7-40); Alkaline Phosphatase 40 U/L (46-116); Chloride 108 mmol/L (98-107)
[2024-09-26] MEDS: METOPROLOL SUCCINATE XL 50 MG TAB PO SCH (09:40)
[2024-09-26] MEDS ORDERED: IODIXANOL 320MG/ML 100ML BTL IV ONE (13:06)
[2024-09-26] MEDS ORDERED: fentaNYL CITRATE 100 MCG/2 ML VL ONE (13:25)
[2024-09-26] MEDS ORDERED: ANGIOMAX 250 MG VIAL IV ONE (13:25)
[2024-09-26] MEDS ORDERED: VERAPAMIL 2.5MG/ML INJ 2ML VIAL IV ONE (13:25)
[2024-09-26] MEDS ORDERED: MIDAZOLAM HCL 2MG/2ML 2ml VIAL (1mg/ml) ONE (13:25)
[2024-09-26] MEDS ORDERED: SODIUM CHL 0.9% 0 ML ONE (13:26)
[2024-09-26] MEDS ORDERED: HEPARIN SODIUM (PORCINE) 5000 UNITS/ML 1ML VIAL ONE (13:26)
[2024-09-26] MEDS ORDERED: LIDOCAINE 2%HCL (LOCAL ANESTH.) INJ 20ML MDV ONE (13:26)
--- NOTE | 2024-09-26 13:48 | DVHPNRES ---
Progress Note Date Seen: Sep 26, 2024 Resident Creating Document: JOSE MARTIN FLAK RESIDENT Medical Necessity Reason Pt with a Central, PICC or Fol: No Subjective Review of Systems 79-year-old female with a past medical history of hypertension, hyperlipidemia, gallstones, and anxiety presents to the emergency department with right-sided chest, shoulder, and back pain, which she describes as a muscle contraction radiating to the neck and chest. Patient reports that she had flu-like symptoms, sore throat and cold along with dry cough, she could not expectorate therefore she started coughing, subsequently she experienced right-sided chest/shoulder pain increased on deep breaths, no radiation and unrelated to food/exertion. She reports that the area felt swollen, though no significant edema was observed. The pain has been present for a while, but she sought evaluation at urgent care earlier today, where an abnormal EKG prompted her transfer to the ED for further evaluation. On arrival, she denies associated symptoms such as shortness of breath, fever, chills, nausea, vomiting, or leg swelling. She does report a cough with a sensation of congestion in her chest, though she is unable to expectorate. She denies tobacco use. Home meds: Amlodipine 5 mg per day, citalopram 10 mg per day, olmesartan+hydrochlorothiazide, albuterol per needed 09/25 - Patient seen and examined at the bedside. Cardiology consulted, echocardiogram pending. 09/26 - patient seen and examined in the bedside. Patient agreed for coronary angiogram. Objective vital signs Vital Sign Date Time Temp Pulse Resp B/P (MAP) Pulse Ox O2 Delivery O2 Flow Rate FiO2 09/26/24 09:40 80 133/58 09/26/24 09:00 97.9 17 95 97.9 09/25/24 23:36 Room Air* 0 21 Total Intake and Output 09/25/24 09/25/24 09/26/24 15:00 23:00 07:00 Intake Total 300 ml 100 ml Output Total 300 ml Balance 300 ml -200 ml medications Current Medications Medications Dose Ordered Sig/Josué Route Start Time Stop Time Status Last Admin Dose Admin Morphine Sulfate 2 mg Q30M PRN IV 09/24/24 22:15 Nitroglycerin 0.4 mg Q5MINP PRN SL 09/24/24 22:15 Ceftriaxone Sodium 50 ml @ 100 mls/hr Q24H IV 09/25/24 09:00 09/26/24 10:20 100 MLS/HR Azithromycin 250 ml @ 125 mls/hr DAILY IV 09/25/24 10:00 09/25/24 09:38 125 MLS/HR Acetaminophen/ Hydrocodone Bitart 1 tab Q6HPRN PRN PO 09/24/24 22:15 Metoprolol Succinate 25 mg DAILY PO 09/26/24 10:00 09/26/24 09:40 25 MG Examination Elderly female patient lying in bed, in no acute distress General: Well-built, afebrile, palor, mucosae are moist Cardiovascular: Regular S1 and S2. No murmurs, gallops or rubs. No JVD elevation. No pedal edema Respiratory: Normal B/L air entry on room air. Clear lung sounds on auscultation Abdomen: Soft, nontender, nondistended, normoactive bowel sounds, no rebound tenderness, no organomegaly, no masses Genitourinary: Deferred MSK/skin: Mobilizes 4 limbs. Skin is dry and warm Neurological: No motor, no sensitive deficits, normal speech. Pupils are isocoric and reactive. Psych/Mental Status: A/Ox4 laboratory and microbiology Laboratory Tests 09/26/24 05:02 Test 09/26/24 05:02 Range/Units Serum Glucose 102 74-106 mg/dL Microbiology Date/Time Source Procedure Growth Status 09/25/24 08:41 Nose MRSA Screen - Final Complete 09/24/24 20:39 Blood Blood Culture - Preliminary NO GROWTH AFTER 24 HOURS OF INCUBATION. Resulted 09/24/24 18:00 Voided Urine Urine Culture - Preliminary Resulted Labs and/or images reviewed: Labs reviewed by me, Image(s) reviewed by me Problem List/Assessment/Plan Problem List/Assessment/Plan Community-acquired pneumonia, Gram-negative and positive Bronchitis Continue ceftriaxone and azithromycin starting 09/24 Continue nebulized treatment Respiratory culture pending Prelim blood culture negative Acute on chronic Congestive heart failure, systolic, LVEF 20% ? NYHA class 3, Newly diagnosed s/p left heart catheterization - Moderate coronary artery disease LBBB Echo shows dilated LV, LVEF 20%, normal RV function. LA enlarged. Grade 1 diastolic dysfunction. 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 No biliary obstruction. Thrombocytopenia Monitor Dyslipidemia Monitor Goals of care discussed with the patient for more than 28 minutes, full code status Plan discussed with patient in which all questions have been answered Case discussed with Dr. Isabel Plan discussed with: Patient JOSE MARTIN FALK RESIDENT Sep 26, 2024 13:48
--- NOTE | 2024-09-26 13:57 | DVHPN2 ---
Progress Note Date Seen: Sep 26, 2024 Medical Necessity Reason Pt with a Central, PICC or Fol: No Subjective Patient reports: Feels better Other Systems: sp cath Objective vital signs Vital Sign Date Time Temp Pulse Resp B/P (MAP) Pulse Ox O2 Delivery O2 Flow Rate FiO2 09/26/24 09:40 80 133/58 09/26/24 09:00 97.9 17 95 97.9 09/25/24 23:36 Room Air* 0 21 Total Intake and Output 09/25/24 09/25/24 09/26/24 15:00 23:00 07:00 Intake Total 300 ml 100 ml Output Total 300 ml Balance 300 ml -200 ml medications Current Medications Medications Dose Ordered Sig/Josué Route Start Time Stop Time Status Last Admin Dose Admin Morphine Sulfate 2 mg Q30M PRN IV 09/24/24 22:15 Nitroglycerin 0.4 mg Q5MINP PRN SL 09/24/24 22:15 Ceftriaxone Sodium 50 ml @ 100 mls/hr Q24H IV 09/25/24 09:00 09/26/24 10:20 100 MLS/HR Azithromycin 250 ml @ 125 mls/hr DAILY IV 09/25/24 10:00 09/25/24 09:38 125 MLS/HR Acetaminophen/ Hydrocodone Bitart 1 tab Q6HPRN PRN PO 09/24/24 22:15 Metoprolol Succinate 25 mg DAILY PO 09/26/24 10:00 09/26/24 09:40 25 MG Albuterol 1.25 mg Q4HR NEB 09/26/24 14:00 Ipratropium [place] 0.5 mg Q4HR NEB 09/26/24 14:00 Examination: GENERAL:Abnormal, HEENT:Abnormal, LUNGS:Abnormal, CVS:Abnormal, ABDOMEN:Abnormal laboratory and microbiology Laboratory Tests 09/26/24 05:02 Test 09/26/24 05:02 Range/Units Serum Glucose 102 74-106 mg/dL Microbiology Date/Time Source Procedure Growth Status 09/25/24 08:41 Nose MRSA Screen - Final Complete 09/24/24 20:39 Blood Blood Culture - Preliminary NO GROWTH AFTER 24 HOURS OF INCUBATION. Resulted 09/24/24 18:00 Voided Urine Urine Culture - Preliminary Resulted Problem List/Assessment/Plan Problem List/Assessment/Plan new onset severe CHF systolic HF NYHA III CKD LBBB moderate cad on cath , non critical asa, statin start GDMT, BB, jardiance and HF management bp control outpt fu with cardiology Plan discussed with: Patient My Orders My Orders Orders - DVAID GUILLEN MD Procedure Category Date Status Time Cl Left Heart Cath CL 09/26/24 Taken 07:25 Date of Service: Sep 26, 2024 Billing Provider: DAVID GUILLEN MD Common Visit Codes: NOT BILLABLE DAVID GUILLEN MD Sep 26, 2024 13:57
--- NOTE | 2024-09-26 13:59 | DVHOP2 ---
Operative Report Operative Report CARDIAC MACHINIST OUTSIDE PROCEDURE REPORT [place], [place] Date of Service: 09/26/24 Felt Washing Machine Tender: David Guillen MD PROCEDURES PERFORMED: Coronary angiogram, left heart catheterization, conscious sedation administration and supervision, less than 15 minutes; fluoroscopy use and interpretation. PREOPERATIVE DIAGNOSES: new onset CHF POSTOP DIAGNOSIS: NICM DESCRIPTION OF PROCEDURE: The patient or appropriate family signed informed consent understanding the risks, benefits and alternatives of the procedure, they wished to proceed. The patient was brought to the cardiac coreroom foundry laborer in n.p.o. state. The patient was prepped in a sterile fashion. Sedation was used per cardiac cath protocol. I administered 2 mL of 2% lidocaine to the right wrist. With an antegrade front wall puncture. I cannulated the right radial artery and placed a 6-[place] Glides[place]ath slender. Next, an intra-arterial spasmolytic was administered. Next, a - 5[place] cathete and were used for coronary angiogram and LVEDP measurement and pressure pullback. At the completion of procedure, all guides and wires were removed, and there were no immediate complications. 4000 U of iv heparin given. FINDINGS: RCA: Moderate vessel off the right sinus of Valsalva, there is no severe flow limiting stenosis. dominant vessel LEFT MAIN: Moderate size left main, it bifurcates into LAD and circumflex. no severe stenosis. CIRCUMFLEX: Moderate caliber vessel coming off the left main with no flow limiting stenosis. prox CX has a 40-50% focal stenosis. LAD: LAD is a moderate caliber vessel coming of the left main. no severe stenosis. D2 has an ostial 70% lesion with normal flow LVEDP of 10 mmhg CONCLUSIONS: 1. moderate non critical CAD with branch disease as described above 2. primarily NICM PLAN: Aggressive risk factor modification and medical management for the patient. HF management DAVID GUILLEN MD Sep 26, 2024 13:59
[2024-09-26] MEDS: ALBUTEROL SULF 2.5 MG/0.5ML(0.5%) NEB SOLN NEB SCH (14:00)
[2024-09-26] MEDS: IPRATROPIUM BROM 0.5 MG/2.5ML INH SOL NEB SCH (14:00)
[2024-09-26] MEDS: ASPirin 81 mg TAB PO ONE (18:11)
[2024-09-26] MEDS: ATORVASTATIN 20 MG TAB PO SCH (21:59)
[2024-09-27] VITALS (11 sets, daily range): BP systolic 108–133; BP diastolic 41–69; PULSE 63–88; RESP 16–18; TEMP 97.8–98.6; O2SAT 96–100
[2024-09-27 08:25] LABS: Chloride 105 mmol/L (98-107); Sodium 139 mmol/L (136-145)
[2024-09-27 08:26] LABS: Anion Gap 9 (5-15); Calcium 10.2 mg/dL (8.7-10.4); Carbon Dioxide 25 mmol/L (20-31)
[2024-09-27 08:31] LABS: BUN/Creatinine Ratio 12.8 (10.0-20.0); Blood Urea Nitrogen 17 mg/dL (9-23)
[2024-09-27 08:32] LABS: Glucose 128 mg/dL (74-106)
[2024-09-27] MEDS: EMPAGLIFLOZIN 10 MG TAB PO SCH (08:59)
[2024-09-27] MEDS: ASPirin 81 mg TAB PO SCH (08:59)
[2024-09-27] MEDS ORDERED: SODIUM CHLORIDE 0.9% 250 ML IV ONE (11:45)
[2024-09-27] MEDS: SODIUM CHLORIDE 0.9% 1,000 ML IV ONE ×2 (11:45→12:45)
[2024-09-27] MEDS ORDERED: ASPI81CH59 PO (14:31)
[2024-09-27] MEDS ORDERED: ATOR-507 PO (14:35)
[2024-09-27] MEDS ORDERED: EMPA1TAB PO (14:35)
[2024-09-27] MEDS ORDERED: SACU1CAP2 PO (14:35)
[2024-09-27] MEDS ORDERED: METO25TA93 PO (14:35)
--- NOTE | 2024-09-27 14:36 | DVHDSRES ---
Discharge Summary Date of Admission Resident Creating Document: JOSE MARTIN FALK RESIDENT Sep 24, 2024 at 22:08 Date of Discharge: Sep 27, 2024 Labs/Diagnostic Data: Laboratory Results Test 09/27/24 07:56 09/26/24 05:02 09/25/24 05:18 09/25/24 00:00 Sodium Level 139 mmol/L (136-145) Potassium Level 4.0 mmol/L (3.5-5.1) Chloride Level 105 mmol/L (98-107) Carbon Dioxide Level 25 mmol/L (20-31) Anion Gap 9 (5-15) Blood Urea Nitrogen 17 mg/dL (9-23) Creatinine 1.33 mg/dL (0.550-1.02) Glomerular Filtration Rate Calc 40 mL/min (>90) BUN/Creatinine Ratio 12.8 (10.0-20.0) Serum Glucose 128 mg/dL (74-106) Calcium Level 10.2 mg/dL (8.7-10.4) White Blood Count 6.6 10^3/uL (4.4-10.8) Red Blood Count 4.17 10^6/uL (4.0-5.20) Hemoglobin 13.7 g/dL (12.2-16.2) Hematocrit 41.3 % (36.0-46.0) Mean Corpuscular Volume 99.1 fL (80.0-100.0) Mean Corpuscular Hemoglobin 32.9 pg (28.0-32.0) Mean Corpuscular Hemoglobin Concent 33.2 g/dL (32.0-36.0) Red Cell Distribution Width 12.6 % (11.8-14.3) Platelet Count 133 10^3/uL (140-450) Mean Platelet Volume 8.6 fL (6.9-10.8) Neutrophils (%) (Auto) 50.0 % (37.0-80.0) Lymphocytes (%) (Auto) 40.2 % (10.0-50.0) Monocytes (%) (Auto) 7.5 % (0.0-12.0) Eosinophils (%) (Auto) 1.8 % (0.0-7.0) Basophils (%) (Auto) 0.5 % (0.0-2.0) Neutrophils # (Auto) 3.3 10 ^3/uL (1.6-8.6) Lymphocytes # (Auto) 2.7 10 ^3/uL (0.4-5.4) Monocytes # (Auto) 0.5 10 ^3/uL (0-1.3) Eosinophils # (Auto) 0.1 10 ^3/uL (0-0.8) Basophils # (Auto) 0 10 ^3/uL (0-0.2) Nucleated Red Blood Cells 0.2 % Prothrombin Time 10.5 sec (9.3-11.8) Prothrombin Time INR 0.99 (0.9-1.15) Activated Partial Thromboplast Time 26.8 SEC (24.5-34.5) Magnesium Level 1.9 mg/dL (1.6-2.6) Total Bilirubin 0.4 mg/dL (0.2-1.0) Aspartate Amino Transferase (AST) 31 U/L (13-40) Alanine Aminotransferase (ALT) 49 U/L (7-40) Alkaline Phosphatase 40 U/L (46-116) Total Protein 6.0 g/dL (5.7-8.2) Albumin 4.1 g/dL (3.2-4.8) Phosphorus Level 3.9 mg/dL (2.4-5.1) B-Type Natriuretic Peptide 27.23 pg/mL (0-100) Triglycerides Level 212 mg/dL (< 150) Cholesterol Level 140 mg/dL (< 200) LDL Cholesterol 64 mg/dL (< 100) HDL Cholesterol 40 mg/dL (40-59) Vitamin B12 Level 561 pg/mL (211-911) Vitamin D 25-Hydroxy 77.1 ng/mL (30.0-100) Thyroid Stimulating Hormone (TSH) 1.25 uIU/mL (0.55-4.78) Influenza Type A Antigen Negative (Negative) Influenza Type B Antigen Negative (Negative) SARS-CoV-2 Antigen (Rapid) Negative (NEGATIVE) Test 09/24/24 20:39 09/24/24 18:22 09/24/24 00:00 Lactic Acid Level 1.7 mmol/L (0.4-2.0) Troponin I High Sensitivity 20 ng/L (</=34) Urine Color Light-yellow (Yellow) Urine Clarity Clear (Clear) Urine pH 7.0 (5.0-9.0) Urine Specific [place] 1.015 (1.001-1.035) Urine Protein Negative (Negative) Urine Ketones Negative (Negative) Urine Blood Negative /uL (Negative) Urine Nitrite Negative (Negative) Urine Bilirubin Negative (Negative) Urine Urobilinogen Normal mg/dL (Negative) Urine Leukocyte Esterase 1+ /uL (Negative) Urine RBC 2 /hpf (0 - 4) Urine Microscopic WBC 2 /HPF (0-5) Urine Squamous Epithelial Cells Few /hpf (<5) Urine Bacteria None seen /hpf (None Seen) Urine Glucose Normal mg/dL (Normal) Other Laboratory Tests 09/27/24 07:56 09/26/24 05:02 Brief Hx & Hospital Course: 79-year-old female with a past medical history of hypertension, hyperlipidemia, gallstones, and anxiety presents to the emergency department with right-sided chest, shoulder, and back pain, which she describes as a muscle contraction radiating to the neck and chest. Patient reports that she had flu-like symptoms, sore throat and cold along with dry cough, she could not expectorate therefore she started coughing, subsequently she experienced right-sided chest/shoulder pain increased on deep breaths, no radiation and unrelated to food/exertion. She reports that the area felt swollen, though no significant edema was observed. The pain has been present for a while, but she sought evaluation at urgent care earlier today, where an abnormal EKG prompted her transfer to the ED for further evaluation. During the hospitalization, she denies associated symptoms such as shortness of breath, fever, chills, nausea, vomiting, or leg swelling. She does report a cough with a sensation of congestion in her chest, though she is unable to expectorate. She denies tobacco use. Troponin were unremarkable, BNP unremarkable. EKG was performed which showed LBBB, cardiology was consulted, Echo shows dilated LV, LVEF 20%, normal RV function. LA enlarged. Grade 1 diastolic dysfunction. Cardiology consulted - left heart catheterization scheduled for 09/27 showed moderate non critical CAD with branch disease, patient was started on aspirin, statin, guideline directed medical therapy. Outpatient follow up with Cardiology was advised. She was also diagnosed with community- acquired pneumonia, patient received ceftriaxone and azithromycin from 09/24 till 09/27 along with nebulized treatment. Patient in REE, was not intermediate, creatinine downtrended but again increased after left heart catheterization. She received IV NS, and creatinine started to trend down to the baseline which is 1.37. Patient's amlodipine was discontinued. 09/27/2024 patient is hemodynamically stable, vitally stable and has no acute complaint, therefore she has been discharged home with the following recommendations: Continue aspirin 81 mg daily Continue atorvastatin 40 mg daily Continue metoprolol succinate 25 mg daily Continue Entresto 15-16 mg 1 capsule twice daily Discontinue amlodipine Follow up with case technician as outpatient within 7 days Follow up with PCP within 7 days Follow up with discharge clinic appointment within 7 days Discharge diagnosis: Atypical chest pain secondary to likely bronchitis s/p left heart catheterization - Moderate coronary artery disease Acute on chronic Congestive heart failure, systolic, LVEF 20% ? 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 PREOPERATIVE DIAGNOSES: new onset CHF POSTOP DIAGNOSIS: NICM DESCRIPTION OF PROCEDURE: The patient or appropriate family signed informed consent understanding the risks, benefits and alternatives of the procedure, they wished to proceed. The patient was brought to the cardiac labourers in n.p.o. state. The patient was prepped in a sterile fashion. Sedation was used per cardiac cath protocol. I administered 2 mL of 2% lidocaine to the right wrist. With an antegrade front wall puncture. I cannulated the right radial artery and placed a 6-[place] Glidesheath slender. Next, an intra-arterial spasmolytic was administered. Next, a - 5[place] cathete and were used for coronary angiogram and LVEDP measurement and pressure pullback. At the completion of procedure, all guides and wires were removed, and there were no immediate complications. 4000 U of iv heparin given. FINDINGS: RCA: Moderate vessel off the right sinus of Valsalva, there is no severe flow limiting stenosis. dominant vessel LEFT MAIN: Moderate size left main, it bifurcates into LAD and circumflex. no severe stenosis. CIRCUMFLEX: Moderate caliber vessel coming off the left main with no flow limiting stenosis. prox CX has a 40-50% focal stenosis. LAD: LAD is a moderate caliber vessel coming of the left main. no severe stenosis. D2 has an ostial 70% lesion with normal flow LVEDP of 10 mmhg CONCLUSIONS: 1. moderate non critical CAD with branch disease as described above 2. primarily NICM PLAN: Aggressive risk factor modification and medical management for the patient. HF management DAVID GUILLEN MD Sep 26, 2024 13:59 DICTATED BY:DAVID GUILLEN MD DICTATED DATE/TIME:09/26/24 1359 ELECTRONICALLY SIGNED BY:DAVID GUILLEN MD 09/26/24 1359 ELECTRONICALLY CO-SIGNED BY: Condition at Discharge: Stable Final Diagnosis/Problems List Atypical chest pain secondary to likely bronchitis s/p left heart catheterization - Moderate coronary artery disease Acute on chronic Congestive heart failure, systolic, LVEF 20% ? NYHA class 3, Newly diagnosed LBBB Community-acquired pneumonia, Gram-negative and positive Bronchitis REE, vasomotor mediated superimposed on CKD 3B Uncontrolled hypertension Transaminitis secondary to hepatic steatosis Thrombocytopenia Dyslipidemia Discharge Disposition: Home Discharge Instruct/Medications Diet: Cardiac 2g Na,low cholest Activity: Light activity Follow Up/Referral: Follow up with case technician as outpatient within 7 days Follow up with PCP within 7 days Follow up with discharge clinic appointment within 7 days Medications: Per EMR Discharge Statement: "Patient was advised to return to the ER or call 911 if any headaches, dizziness, shortness of breath, chest pain, abdominal pain, bleeding, fevers, or worsening of medical condition. Patient was counseled about treatment plan, medications, possible side effects, patientverbalized understanding. All questions were answered to the best of my ability. This discharge took greater then 30 minutes in planning, reviewing documentation, counseling the patient, and discussing with other team members." ASSESSMENT ASSESSMENT Assessment s/p left heart catheterization - Moderate coronary artery disease Community-acquired pneumonia, Gram-negative and positive Acute on chronic Congestive heart failure, systolic, LVEF 20% ? NYHA class 3, Newly diagnosed Atypical chest pain secondary to likely bronchitis REE, vasomotor mediated superimposed on CKD 3b JOSE MARTIN FALK RESIDENT Sep 27, 2024 14:36
[2024-09-27] MEDS ORDERED: SODIUM CHLORIDE 0.9% 500 ML IV ONE (15:15)
[2024-09-27] MEDS: SODIUM CHLORIDE 0.9% 500 ML IV ONE (15:20)
[2024-09-27 16:24] LABS: Potassium 4.2 mmol/L (3.5-5.1); Sodium 142 mmol/L (136-145)
[2024-09-27 16:25] LABS: Anion Gap 8 (5-15); Carbon Dioxide 25 mmol/L (20-31)
[2024-09-27 16:30] LABS: BUN/Creatinine Ratio 12.9 (10.0-20.0); Blood Urea Nitrogen 16 mg/dL (9-23); Glucose 91 mg/dL (74-106)
[2024-09-27 16:47] LABS: Chloride 109 mmol/L (98-107)
--- NOTE | 2024-09-28 09:51 | ECG ---
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
== END 2024-09-27 18:30 | disposition home or self-care (01) | DRG 286 ==
LOC: ER 14:51 → OVERFLOW 22:08 → TELE-WESTW 09-25 23:34
PROVIDERS: ADMIT Student in an Organized Health Care Education/Training Program; ATTEND Internal Medicine
PROC: B211YZZ Fluoroscopy of Multiple Coronary Arteries using Other Contrast (ICD-10-PCS; principal; 2024-09-26)
PROC: 4A023N7 Measurement of Cardiac Sampling and Pressure, Left Heart, Percutaneous Approach (ICD-10-PCS; 2024-09-26)
DX: I25.10 Atherosclerotic heart disease of native coronary artery without angina pectoris (principal); I50.23 Acute on chronic systolic (congestive) heart failure; J15.69 Pneumonia due to other Gram-negative bacteria; J15.9 Unspecified bacterial pneumonia; I16.9 Hypertensive crisis, unspecified; I13.0 Hypertensive heart and chronic kidney disease with heart failure and stage 1 through stage 4 chronic kidney disease, or unspecified chronic kidney disease; N17.9 Acute kidney failure, unspecified; I42.8 Other cardiomyopathies; Z20.822 Contact with and (suspected) exposure to COVID-19; E78.5 Hyperlipidemia, unspecified; K80.20 Calculus of gallbladder without cholecystitis without obstruction; F41.9 Anxiety disorder, unspecified; I44.7 Left bundle-branch block, unspecified; D69.6 Thrombocytopenia, unspecified; R74.01 Elevation of levels of liver transaminase levels; K76.0 Fatty (change of) liver, not elsewhere classified; J40 Bronchitis, not specified as acute or chronic; N18.32 Chronic kidney disease, stage 3b; Z90.49 Acquired absence of other specified parts of digestive tract
CPT/HCPCS: 36415; 71045; 76705; 80048; 80053; 80061; 81001; 82306; 82565; 82607; 83605; 83735; 83880; 84100; 84443; 84484; 85025; 85610; 85730; 87040; 87081; 87086; 87426; 87804; 93005; 93306; 93458; 94640; 97163; 99152; G0378; J2250; Q9967

== ENCOUNTER 2024-12-15 08:33 | Emergency (ER) | payer OTHER, MEDICAID ==
[~2024-12-15] VITALS: Ht 177.8 cm; Wt 81.3 kg
[~2024-12-15 08:33] MED LIST changes: -AMLO1TAB22 PO; +ASPI81CH59 PO; +ATOR-507 PO; -AZIT-43 PO; -BENZ100C97 PO; -CITA10TA5 PO; -DOXY100C4 PO; +EMPA1TAB PO; -METH4TAB44 PO; +METO25TA93 PO; -OLME40TA9 PO; +SACU1CAP2 PO
[2024-12-15 09:09] VITALS: PULSE 89; RESP 17; O2SAT 98
--- NOTE | 2024-12-15 09:16 | ED.PDOC ---
History of Present Illness HPI Comments 79 y/o F, with PMHx of anxiety, gallstones, HLD, and HTN presents to the ED for CC of generalized body pain. Patient states, that he has been experiencing symptoms of generalized body pain onset, since 11/18/24. Patient comments, having received her COVID-19 vaccination on 11/18/24, and symptoms starting tim rtly after. Patient reports, swelling to have worsened in her left lower extremity. Patient relays, that she was seen at [facility] and was relayed to the ED for further evaluation of symptoms. Patient denies cough, fever, chills, or fatigue. No other symptoms or modifying factors present at this time. Chief Complaint: Body Pain Time Seen by MD: 09:00 Primary Care Provider: DENA Reviewed Notes: Nurses Notes, Medications, Allergies Allergies: Coded Allergies: NO KNOWN ALLERGIES (Unverified , 09/24/24) Home Meds Active Scripts Sacubitril-Valsartan (Entresto 15-16 mg) 1 Cap Cap, 1 CAP PO BID for 30 Days, #60 CAP 0 [facility] 09/27/24 Metoprolol Succinate (Metoprolol Succinate Er) 25 Mg Tab, 1 TAB PO DAILY for 30 Days, #30 TAB 0 [facility] 09/27/24 Empagliflozin (Jardiance) 10 Mg Tab, 10 MG PO DAILY for 30 Days, #30 TAB 0 [facility] 09/27/24 Atorvastatin Calcium (Lipitor) 40 Mg Tab, 1 TAB PO DAILY, #30 TAB 5 [facility] 09/27/24 Aspirin (Aspirin Low Dose) 81 Mg Chw, 1 TAB PO DAILY, #30 TAB 0 [facility] 09/27/24 Reported Medications Albuterol Sulfate (Albuterol Sulfate Hfa) 108 Mcg/Act Aer, 2 PUFF IN Q4-6HR PRN for 16 Days, #6.7 09/26/24 Hydroxyzine Pamoate (Hydroxyzine Pamoate) 25 Mg Cap, 1-2 CAP PO HS for 30 Days, #60 09/26/24 Sertraline Hcl (Sertraline Hcl) 50 Mg Tab, 1 TAB PO DAILY for 90 Days, #90 09/26/24 Atorvastatin Calcium (Lipitor) 20 Mg Tab, 1 TAB PO DAILY for 90 Days, #90 09/26/24 Information Source: Patient Mode of Arrival: Ambulatory Severity: Moderate Timing: Days Duration: Since onset Prehospital treatment: None Past Medical History PAST MEDICAL HISTORY: Anxiety, Gallstones, High Lipids, HTN Surgical History: Tubal Ligation 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 History: No Pertinent 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 LABORATORY WORKER History Family History Family History: Reviewed,noncontributory to illness Social History Smoker: Non-Smoker Alcohol: Denies ETOH Use Drugs: Denies Drug Use Lives In: Home Constitutional: denies: chills, diaphoresis, fatigue, fever, malaise, sweats, weakness, others EENTM: denies: blurred vision, double vision, ear bleeding, ear discharge, ear drainage, ear pain, ear ringing, eye pain, eye redness, hearing loss, mouth pain, mouth swelling, nasal discharge, nose bleeding, nose congestion, nose pain, photophobia, tearing, throat pain, throat swelling, voice changes, others Respiratory: denies: cough, hemoptysis, orthopnea, SOB at rest, shortness of breath, SOB with excertion, stridor, wheezing, others Cardiovascular: denies: chest pain, dizzy spells, diaphoresis, Dyspnea on exertion, edema, irregular heart beat, left arm pain, lightheadedness, palpitations, PND, syncope, others Gastrointestinal: denies: abdomen distended, abdominal pain, blood streaked bowels, constipated, diarrhea, dysphagia, difficulty swallowing, hematemesis, melena, nausea, poor appetite, poor fluid intake, rectal bleeding, rectal pain, vomiting, others Genitourinary: denies: abnormal vagina bleeding, burning, dyspareunia, dysuria, flank pain, frequency, hematuria, incontinence, pain, , vagina discharge, urgency, others Neurological: denies: dizziness, fainting, headache, left sided numbness, left sided weakness, numbness, paresthesia, pre-existing deficit, right sided numbness, right sided weakness, seizure, speech problems, tingling, tremors, weakness, others Musculoskeletal: reports: others (body pain, left leg swelling); denies: back pain, gout, joint pain, joint swelling, muscle pain, muscle stiffness, neck pain Integumetry: denies: bruises, change in color, change in hair/nails, dryness, laceration, lesions, lumps, rash, wounds, others Allergic/Immunocompromised: denies: Difficulty Healing, Frequent Infections, Hives, Itching, others Hematologic/Lymphatic: denies: anemia, blood clots, easy bleeding, easy bruising, swollen glands, others Endocrine: denies: excessive hunger, excessive sweating, excessive thirst, excessive urination, flushing, intolerance to cold, intolerance to heat, unexplained weight gain, unexplained weight loss, others Psychiatric: denies: anxiety, bipolar disorder, depression, hopeless, panic disorder, schizophrenia, sleepless, suicidal, others All Other Systems: Reviewed and Negative Physical Exam General Appearance: Moderate Distress HEENT: Normal ENT Inspection, Pharynx Normal, TMs Normal Neck: Full Range of Motion, Non-Tender, Normal, Normal Inspection Respiratory: Chest Non-Tender, Lungs Clear, No Accessory Muscle Use, No Respiratory Distress, Normal Breath Sounds Cardiovascular: No Edema, No JVD, No Murmur, No Gallop, Normal Peripheral Pulses, Regular Rate/Rhythm Breast Exam: Deferred Gastrointestinal: No Organomegaly, Non Tender, No Pulsatile Mass, Normal Bowel Sounds, Soft Genitalia: Deferred Pelvic: Deferred Rectal: Deferred Extremities: No calf tenderness, Normal capillary refill, Normal inspection, Normal range of motion, Non-tender, No pedal edema Musculoskeletal : Apperance: Normal Neurologic: Alert, 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 Was a procedure done?: No Differential Dx Considerations may include: Musculoskeletal pain Muscle strain X-Ray, Labs, Meds, VS Vital Signs Date Time Temp Pulse Resp B/P (MAP) Pulse Ox O2 Delivery O2 Flow Rate FiO2 12/15/24 09:09 89 17 98 Room Air* 0 21 12/15/24 08:55 98.3 89 17 124/69 (87) 98 98.3 12/15/24 08:55 89 16 98 Room Air 12/15/24 08:43 98.6 109 16 134/85 (101) 98 98.6 [facility] [address] [facility] [address] Ph: [phone] DIAGNOSTIC IMAGING Diagnostic Imaging Report : [id number] Signed PATIENT: CECILIO HUNTER BACCT: [id number] UNIT: [id number] : 1945 LOC: ER ROOM / BED: / AGE / SEX: 79 / F ADM STATUS: REG ER SERVICE 09 ORDERING PHYSICIAN: CARLI WESTON MD PROCEDURE(s): LLDVT - LT Lower DVT REASON: dvt ORDER NUMBER(s): [id number], ACCESSION NUMBER(s): [id number] Clinical History: pain; dvt Comparison: None Technique: Duplex Doppler evaluation of the deep venous system of the left lower extremity from the common femoral vein to the popliteal vein including color Doppler and spectral/pulsed waveform analysis was performed. Findings: The common femoral vein demonstrates appropriate compressibility and waveform variability . There is compressibility/patency of the great saphenous vein at the proximal thigh . The femoral vein demonstrates appropriate compressibility and waveform variability . The deep femoral vein demonstrates appropriate compressibility and waveform variability . The popliteal vein demonstrates appropriate compressibility and waveform variability . There is normal compressibility at the tibioperoneal trunk. Impression: No left deep venous thrombosis. If clinical concern/symptoms persist or worsen, short-interval follow-up study is suggested. ATED BY: ELLE TERRY MD DICTATED DATE/TIME: 12/15/24 1010 SIGNED BY: ELLE TERRY MD SIGNED DATE/TIME: 12/15/24 1010 CC: Patient alert. Complaining of extremity pain. Vitals stable. Answering all questions. She states that her left lower extremity swollen. On examination do not appreciate the swelling. Possibly osteoarthritis of the left hip. Ultrasound of the lower extremity does not reveal any clot. Explained to the patient. Was told to follow up with her primary care physician. Was told to come back if there is any problem. Time of 1ST Reevaluation: 09:30 Reevaluation 1ST: Improved Patient Education/Counseling: Diagnosis, Treatment Family Education/Counseling: No Family Present Departure 1 Departure Time of Disposition: 11:01 Impression: Primary Impression: Osteoarthritis Qualified Codes: M16.12 - Unilateral primary osteoarthritis, left hip Disposition: 01 HOME / SELF CARE / HOMELESS Condition: Good Discharged With: Self Critical Care Note Critical Care Time?: No Stability Stability form required: No Heart Score Heart Score: Heart Score Response (Comments) Value History N/A 0 EKG N/A 0 Age N/A 0 Risk Factors N/A 0 Troponin N/A 0 Total 0 I personally scribed for CARLI WESTON MD ([email or web address]) on 12/15/24 at 09:16. Electronically submitted by Bess Morrison ([employer]). I personally scribed for CARLI WESTNO MD ([email or web address]) on 12/15/24 at 09:19. Electronically submitted by Bess Morrison ([employer]). I personally scribed for CARLI WESTON MD ([email or web address]) on 12/15/24 at 10:36. Electronically submitted by Bess Morrison ([employer]). CARLI WESTON MD December 15, 2024 09:16
--- NOTE | 2024-12-15 10:12 | DVH ---
Clinical History: pain; dvt Comparison: None Technique: Duplex Doppler evaluation of the deep venous system of the left lower extremity from the common femo ral vein to the popliteal vein including color Doppler and spectral/pulsed waveform analysis was perf ormed. Findings: The common femoral vein demonstrates appropriate compressibility and waveform variability . There is compressibility/patency of the great saphenous vein at the proximal thigh . The femoral vein demonstrates appropriate compressibility and waveform variability . The deep femoral vein demonstrates appropriate compressibility and waveform variability . The popliteal vein demonstrates appropriate compressibility and waveform variability . There is normal compressibility at the tibioperoneal trunk. Impression: No left deep venous thrombosis. If clinical concern/symptoms persist or worsen, short-interval follow-up study is suggested.
[2024-12-15 11:17] VITALS: BP 115/50; PULSE 69; RESP 16; TEMP 98.7; O2SAT 99
== END 2024-12-15 11:19 | disposition home or self-care (01) ==
LOC: ER 08:33
DX: M16.12 Unilateral primary osteoarthritis, left hip (principal); F41.9 Anxiety disorder, unspecified; I10 Essential (primary) hypertension; E78.5 Hyperlipidemia, unspecified; Z98.51 Tubal ligation status; Z79.899 Other long term (current) drug therapy; Z79.84 Long term (current) use of oral hypoglycemic drugs; Z79.82 Long term (current) use of aspirin
CPT/HCPCS: 93971

== ENCOUNTER 2025-02-15 02:47 | Emergency (ER) | payer OTHER, MEDICAID ==
[~2025-02-15] VITALS: Ht 177.8 cm; Wt 80.9 kg
[2025-02-15 02:47] VITALS: BP 169/77; RESP 22; TEMP 98.1; O2SAT 100
--- NOTE | 2025-02-15 03:34 | ED.PDOC ---
HPI Comments 79 year old female presents to the ED with a chief complaint of chest pain onset 1 day. PMHx new onset CHF, HLD, HTN, gallstones. Patient states she received COVID vaccine on 11/18/24, symptoms began shortly after, has been experiencing them intermittently since then. For the past day patient has been experiencing LT sided chest pain, shortness of breath, LT arm pain, LT low back pain, LT leg pain, generalized weakness. Patient was seen in this ED on 12/15/24 for similar symptoms. Denies dizziness, nausea, vomiting, diarrhea, chest pain, fevers, chills. No other symptoms or modifying factors present at this time. Chief Complaint: Chest Pain Time Seen by MD: 03:15 Primary Care Provider: DENA Blank Notes: Medications, Allergies Allergies: Coded Allergies: NO KNOWN ALLERGIES (Unverified , 09/24/24) Home Meds Active Scripts Tramadol HCl (Tramadol HCl) 50 Mg Tab, 25 MG PO Q8HPRN PRN for 3 Days, #5 TAB Prov:AMBER MAYORGA MD 02/15/25 Sacubitril-Valsartan (Entresto 15-16 mg) 1 Cap Cap, 1 CAP PO BID for 30 Days, #60 CAP 0 Refills Prov:JOSE MARTIN FALK 09/27/24 Metoprolol Succinate (Metoprolol Succinate Er) 25 Mg Tab, 1 TAB PO DAILY for 30 Days, #30 TAB 0 Refills Prov:JOSE MARTIN FALK 09/27/24 Empagliflozin (Jardiance) 10 Mg Tab, 10 MG PO DAILY for 30 Days, #30 TAB 0 R efills Prov:JOSE MARTIN FALK 09/27/24 Atorvastatin Calcium (Lipitor) 40 Mg Tab, 1 TAB PO DAILY, #30 TAB 5 Refills Prov:JOSE MARTIN FALK 09/27/24 Aspirin (Aspirin Low Dose) 81 Mg Chw, 1 TAB PO DAILY, #30 TAB 0 Refills Prov:JOSE MARTIN FALK 09/27/24 Reported Medications Albuterol Sulfate (Albuterol Sulfate Hfa) 108 Mcg/Act Aer, 2 PUFF IN Q4-6HR PRN for 16 Days, #6.7 09/26/24 Hydroxyzine Pamoate (Hydroxyzine Pamoate) 25 Mg Cap, 1-2 CAP PO HS for 30 Days, #60 09/26/24 Sertraline Hcl (Sertraline Hcl) 50 Mg Tab, 1 TAB PO DAILY for 90 Days, #90 09/26/24 Atorvastatin Calcium (Lipitor) 20 Mg Tab, 1 TAB PO DAILY for 90 Days, #90 09/26/24 Information Source: Patient Mode of Arrival: Ambulatory Severity: Moderate Timing: Days Duration: Since onset Prehospital treatment: None Location: Chest (L) Radiation: Back, Arm (L) Quality: Sharp Onset: At Rest Cardiac Risk Factors: Hyperlipidemia, HTN PE Risk Factors: None History of: Similar pain in past Associated Signs and Symptoms: SOB, Back Pain Vital Signs Vital Signs Date Time Temp Pulse Resp B/P (MAP) Pulse Ox O2 Delivery O2 Flow Rate FiO2 02/15/25 03:55 66 02/15/25 02:47 98.1 22 169/77 (107) 100 98.1 Physical Exam General: Awake, alert and oriented. No acute distress. Skin: Skin in warm, dry and intact. Appropriate color for ethnicity. HEENT: The head is normocephalic and atraumatic. Conjunctivae are clear without exudates or hemorrhage. Sclera is non-icteric. EOM are intact. No signs of nystagmus. Eyelids are normal in appearance without swelling or lesions. Oral mucosa is pink and moist Neck: The neck is supple with normal range of motion. No JVD. Cardiac: Heart rate and rhythm are normal. No murmurs, gallops, or rubs are auscultated. Respiratory: No signs of respiratory distress. Lung sounds are clear in all lobes bilaterally without rales, rhonchi, or wheezes. Abdominal: Abdomen is soft, non-tender without distention, guarding or rigidity. Bowel sounds are present and normoactive in all four quadrants. Extremities: Upper and lower extremities are atraumatic in appearance without deformity or edema. Neurological: The patient is awake, alert and oriented to person, place, and time with normal speech. Speech is clear. There is no facial asymmetry. Psychiatric: Appropriate mood and affect. Good judgement and insight. Review of Systems: REVIEW OF SYSTEMS: No fever, no chills, or fatigue HEENT: No sore throat, no earache, no congestion, no neck pain. Cardiac: No chest pain. No palpitations. Lungs: No shortness of breath, no cough. GI: No nausea, no vomiting, no diarrhea, no constipation, no abdominal pain : No dysuria, frequency, or urgency. No hematuria. Musculoskeletal: No joint pain , no joint swelling, no extremity edema. Skin: No rash, no itching. Neuro: No headache, no dizziness, no weakness Past Medical History PAST MEDICAL HISTORY: Anxiety, CHF, Gallstones, High Lipids, HTN Surgical History: Tubal Ligation DIRECTOR OF ANNUAL GIVING History: No Pertinent DIRECTOR OF ANNUAL GIVING History Family History Family History: Reviewed,noncontributory to illness Social History Smoker: Non-Smoker Alcohol: Denies ETOH Use Drugs: Denies Drug Use Lives In: Home Was a procedure done? Was a procedure done?: No CP Differential Dx Differential Diagnosis: Other Other Differential Diagnosis Differential diagnoses considered include acute ischemic coronary syndrome, aortic dissection, cardiac tamponade, mediastinitis, pulmonary embolus, pneumothorax, tension pneumothorax, esophageal rupture, coronary artery vasospasm, myocarditis, pericarditis, pneumonia, pulmonary edema, esophageal tear, pancreatitis, aortic stenosis, dilated cardiomyopathy, hypertrophic cardiomyopathy, mitral valve prolapse, malignancy, pleuritis, pneumomediastinum, primary pulmonary hypertension, cholecystitis, esophageal spasm, esophagus, gastritis, GERD, peptic ulcer disease, costochondritis, fibromyalgia, rib fracture, herpes zoster, radicular syndromes, thoracic outlet syndrome, somatization. X-Ray, Labs, Meds, VS Vital Signs Date Time Temp Pulse Resp B/P (MAP) Pulse Ox O2 Delivery O2 Flow Rate FiO2 02/15/25 03:55 66 02/15/25 03:34 94 02/15/25 02:59 94 02/15/25 02:47 98.1 83 22 169/77 (107) 100 98.1 Lab Test 02/15/25 03:46 02/15/25 02:55 Range/Units Troponin I High Sensitivity 26 27 </=34 ng/L White Blood Count 8.8 4.4-10.8 10^3/uL Red Blood Count 4.62 4.0-5.20 10^6/uL Hemoglobin 15.3 12.2-16.2 g/dL Hematocrit 45.1 36.0-46.0 % Mean Corpuscular Volume 97.6 80.0-100.0 fL Mean Corpuscular Hemoglobin 33.2 H 28.0-32.0 pg Mean Corpuscular Hemoglobin Concent 34.0 32.0-36.0 g/dL Red Cell Distribution Width 13.0 11.8-14.3 % Platelet Count 183 140-450 10^3/uL Mean Platelet Volume 8.1 6.9-10.8 fL Neutrophils (%) (Auto) 34.2 L 37.0-80.0 % Lymphocytes (%) (Auto) 55.4 H 10.0-50.0 % Monocytes (%) (Auto) 7.3 0.0-12.0 % Eosinophils (%) (Auto) 2.6 0.0-7.0 % Basophils (%) (Auto) 0.5 0.0-2.0 % Neutrophils # (Auto) 3.0 1.6-8.6 10 ^3/uL Lymphocytes # (Auto) 4.9 0.4-5.4 10 ^3/uL Monocytes # (Auto) 0.6 0-1.3 10 ^3/uL Eosinophils # (Auto) 0.2 0-0.8 10 ^3/uL Basophils # (Auto) 0 0-0.2 10 ^3/uL Nucleated Red Blood Cells 0.2 % Sodium Level 141 136-145 mmol/L Potassium Level 4.2 3.5-5.1 mmol/L Chloride Level 107 98-107 mmol/L Carbon Dioxide Level 22 20-31 mmol/L Anion Gap 12 5-15 Blood Urea Nitrogen 19 9-23 mg/dL Creatinine 1.44 H 0.550-1.02 mg/dL Glomerular Filtration Rate Calc 37 >90 mL/min BUN/Creatinine Ratio 13.2 10.0-20.0 Serum Glucose 125 H 74-106 mg/dL Calcium Level 10.6 H 8.7-10.4 mg/dL B-Type Natriuretic Peptide 45.33 0-100 pg/mL Time of 1ST Reevaluation: 03:45 Reevaluation 1ST: Unchanged Patient Education/Counseling: Need For Follow Up Family Education/Counseling: Need For Follow Up SEPSIS Sepsis Screen Physician Orders Electrocardigram (02/15/25 02:56) Chest Xray 1 View (02/15/25 02:56) Academic Affairs Dean (02/15/25 ) Electrocardigram (02/15/25 03:56) Electrocardigram (02/15/25 05:56) Vital Signs Date Time Temp Pulse Resp B/P (MAP) Pulse Ox O2 Delivery O2 Flow Rate FiO2 7/10/25 03:55 66 02/15/25 03:34 94 02/15/25 02:59 94 02/15/25 02:47 98.1 83 22 169/77 (107) 100 98.1 Laboratory Tests Test 02/15/25 02:55 White Blood Count 8.8 10^3/uL (4.4-10.8) Departure 1 Departure Time of Disposition: 05:02 Impression: Primary Impression: Joint pain Additional Impressions: Chest pain Shortness of breath Disposition: 01 HOME / SELF CARE / HOMELESS Condition: Stable Additional Instructions: ED DISCHARGE INSTRUCTIONS Instructions: Please read all instructions provided in this packet carefully. Although you have been discharged from the Emergency Department, this does not mean that you have a "clean bill of health". No definitive diagnosis for your symptoms has been made today. It is possible that you are in the process of developing a serious illness. This is why you must return to the ED without fail if any new or worsening symptoms (especially if your symptoms include chest pa in, trouble breathing, abdominal pain, fever, headache, confusion, trouble seeing, or trouble walking) It is also very important that you see a primary care doctor within the next 3-5 days to follow up. If you are unable to get an appointment, return to the ED for re-evaluation. CHEST PAIN EDUCATION There are many things that can cause chest pain. Some are not serious and will get better on their own in a few days. But some kinds of chest pain need more testing and treatment. Your doctor may have recommended a follow-up visit in the next few days. If you are not getting better, you may need more tests or treatment. Even though your doctor has released you, you still need to watch for any problems. The doctor carefully checked you, but sometimes problems can develop later. If you have new symptoms or if your symptoms do not get better, get medical care right away. If you have worse or different chest pain or pressure that lasts more than 5 minutes or you passed out (lost consciousness), call 911 or seek other emergency help right away. A medical visit is only one step in your treatment. Even if you feel better, you still need to do what your doctor recommends, such as going to all suggested follow-up appointments and taking medicines exactly as directed. This will help you recover and help prevent future problems. How can you care for yourself at home? Rest until you feel better. Take your medicine exactly as prescribed. Call your doctor if you think you are having a problem with your medicine. Do not drive after taking a prescription pain medicine. When should you call for help? Call 911 if: You passed out (lost consciousness). You have severe difficulty breathing. You have symptoms of a heart attack. These may include: Chest pain or pressure, or a strange feeling in your chest. Sweating. Shortness of breath. Nausea or vomiting. Pain, pressure, or a strange feeling in your back, neck, jaw, or upper belly or in one or both shoulders or arms. Lightheadedness or sudden weakness. A fast or irregular heartbeat. After you call 911, the edger saw operator may tell you to chew 1 adult-strength or 2 to 4 low-dose aspirin. Wait for an ambulance. Do not try to drive yourself. Call your doctor now or seek immediate medical care if: You have any trouble breathing. You have new or different chest pain. You are dizzy or lightheaded, or you feel like you may faint. Watch closely for changes in your health, and be sure to contact your doctor if you do not get better as expected. Current as of: March 08, 2024 Author: [employer] Staff? e-Prescriptions Tramadol HCl (Tramadol HCl) 50 Mg Tab 25 MG PO Q8HPRN PRN for 3 Days, #5 TAB Prov: AMBER MAYORGA MD 02/15/25 Comments 79-year-old female with chest pain, shortness of breath and major complaint of joint pain. EKG negative for signs of ischemia. High sensitivity troponin negative. CXR shows no acute process. Presentation not suggestive of acute coronary syndrome, pulmonary embolism or aortic dissection. Patient improved at time of discharge. No hypoxia, respiratory distress or dyspnea at discharge. Patient able to ambulate without difficulty. Extensive evaluation was performed in attempt to identify or rule out: (See differential diagnosis section) The following tests were ordered, and results were reviewed by me and discussed with patient: (See diagnostic results section) The following test were independently interpreted by me: EKG I reviewed and agreed with the following test results read by other providers: CXR I reviewed the following notes from the pt's past medical encounters: N/A Additional information was gathered from interviewing the following independent historians: N/A Discussion of management or test interpretation with external physician/other qualified health plant care worker: N/A Decision regarding hospitalization or escalation of hospital level of care: Risks and benefits of admission for further treatment of patient's condition was considered however due to patient's stable condition patient will be discharged to follow up closely or return to care for worsening of condition or inability to follow up. Critical Care Note Critical Care Time?: No Stability Stability form required: No Heart Score Heart Score: Heart Score Response (Comments) Value History N/A 0 EKG N/A 0 Age N/A 0 Risk Factors N/A 0 Troponin N/A 0 Total 0 EKG EKG : Pulse Rate (adult): 94 Cardiac Rhythm: NSR Block: RBBB Comments No STEMI I personally scribed for AMBER MAYORGA MD ([email or web address]) on 02/15/25 at 03:34. Electronically submitted by Concepción Villarreal ([email or web address]). AMBER MAYORGA MD Feb 15, 2025 03:34
[2025-02-15 03:45] LABS: Hematocrit 45.1 % (36.0-46.0); Hemoglobin 15.3 g/dL (12.2-16.2); Mean Corpuscular Hemoglobin 33.2 pg (28.0-32.0); Mean Corpuscular Volume 97.6 fL (80.0-100.0); Nucleated Red Blood Cells % 0.2 %
[2025-02-15 03:53] LABS: Potassium 4.2 mmol/L (3.5-5.1); Sodium 141 mmol/L (136-145)
[2025-02-15 03:54] LABS: Anion Gap 12 (5-15); Carbon Dioxide 22 mmol/L (20-31)
[2025-02-15 03:55] VITALS: PULSE 66
[2025-02-15 03:55] LABS: Calcium 10.6 mg/dL (8.7-10.4); Chloride 107 mmol/L (98-107)
--- NOTE | 2025-02-15 03:57 | DVH ---
CHEST RADIOGRAPH Indication: cp Technique: Single frontal view of the chest was obtained COMPARISON: XY CHEST PORTABLE on DOS: 09/24/24 FINDINGS: Lines and Tubes: None Lungs: Clear Pleura: No effusion. No pneumothorax. Cardiomediastinal contours: Unremarkable Bones: Unremarkable IMPRESSION: 1. No acute disease.
[2025-02-15 03:59] LABS: BUN/Creatinine Ratio 13.2 (10.0-20.0); Blood Urea Nitrogen 19 mg/dL (9-23)
[2025-02-15 04:00] LABS: Glucose 125 mg/dL (74-106)
[2025-02-15] MEDS: ACETAMINOPHEN IV 1000 MG/100ML (10MG/ML) IV ONE (05:37)
[2025-02-15] MEDS: ACETAMINOPHEN 500 MG TAB or CAP PO ONE (05:48)
[2025-02-15] MEDS: diazePAM 2 MG TAB PO ONE (05:48)
[2025-02-15] MEDS ORDERED: TRAM-626 PO (05:53)
[2025-02-15] MEDS: IBUPROFEN 600 MG TAB PO ONE (06:29)
--- NOTE | 2025-02-15 07:21 | ECG ---
[facility] Test Date: 2025-02-15 Test Time: 02:59:27 Pat Name: CECILIO HUNTER Department: ED Room: Gender: F Learning Solutions Specialist: PASCUAL : 1945 Requested By: AMBER MAYORGA Order Number: [id number] Reading MD: Tylor Sung Measurements Intervals [place] Rate: 94 P: 74 MA: 128 QRS: -57 QRSD: 144 T: 90 QT: 399 QTc: 500 Interpretive Statements Sinus rhythm Left bundle branch block Electronically Signed On 02-15-2025 19:08:57 PDT by Tylor Sung Please click the below link to view image of tracing.
--- NOTE | 2025-02-15 07:21 | ECG ---
[facility] Test Date: 2025-02-15 Test Time: 03:55:58 Pat Name: CECILIO HUNTER Department: ED Room: Gender: F Assignment Editor: PASCUAL : 1945 Requested By: AMBER MAYORGA Order Number: [id number] Reading MD: Tylor Sung Measurements Intervals [place] Rate: 66 P: 57 ME: 140 QRS: -53 QRSD: 145 T: 79 QT: 460 QTc: 482 Interpretive Statements Sinus rhythm Left bundle branch block Baseline wander in lead(s) V1 Electronically Signed On 02-15-2025 19:09:06 PDT by Tylor Sung Please click the below link to view image of tracing.
== END 2025-02-15 06:36 | disposition home or self-care (01) ==
LOC: ER 02:47
DX: M25.50 Pain in unspecified joint (principal); R07.89 Other chest pain; R06.02 Shortness of breath; F41.9 Anxiety disorder, unspecified; E78.5 Hyperlipidemia, unspecified; I11.0 Hypertensive heart disease with heart failure; I50.9 Heart failure, unspecified; Z98.51 Tubal ligation status; Z79.899 Other long term (current) drug therapy; Z79.84 Long term (current) use of oral hypoglycemic drugs; Z79.82 Long term (current) use of aspirin
CPT/HCPCS: 36415; 71045; 80048; 83880; 84484; 85025; 93005

== ENCOUNTER 2025-05-28 11:59 | Emergency (ER) | payer OTHER, MEDICAID ==
[~2025-05-28] VITALS: Ht 177.8 cm; Wt 74.0 kg
[~2025-05-28 11:59] MED LIST changes: +TRAM-626 PO
[2025-05-28 12:00] VITALS: BP 161/80; PULSE 69; RESP 20; TEMP 98; O2SAT 94
--- NOTE | 2025-05-28 12:50 | ED.PDOC ---
History of Present Illness(SKN HPI Comments 79-year-old female presents to the ER in her wheelchair with a chief complaint of bilateral lower extremity pain. The patient reports on having bilateral lower feet pain associated with the redness since yesterday. Patient notes on no injury to the area. Patient denies any fever, cough, difficulty swallowing, or shortness of breath Denies fever chills night sweats nausea vomiting diarrhea Denies persistent loss of appetite nor unintentional weight loss over the past 3 months Denies history of STI Denies cough and cold-like symptoms Denies recent travel Denies sick contact with similar rash Denies new topical creams/lotions/shampoos/detergents Denies noticing any insects Denies bruising bleeding anywhere Denies chronic skin issues or family history of skin issues Chief Complaint: Lower Extremity Time Seen by MD: 12:45 Primary Care Provider: DENA History of Present Illness: Nurses Notes, Medications, Allergies Allergies: Coded Allergies: NO KNOWN ALLERGIES (Unverified , 09/24/24) Home Meds Active Scripts Gabapentin (Gabapentin) 100 Mg Cap, 1 CAP PO QHSP PRN for 30 Days, #30 CAP 0 Refills Prov:OTTO CAMPOS NP 05/28/25 Hydroxyzine Hcl (Hydroxyzine Hcl) 10 Mg Tab, 10 MG PO Q8HP PRN for 10 Days, #30 TAB 0 Refills Prov:OTTO CAMPOS NP 05/28/25 Tramadol HCl (Tramadol HCl) 50 Mg Tab, 25 MG PO Q8HPRN PRN for 3 Days, #5 TAB Prov:AMBER MAYORGA MD 02/15/25 Sacubitril-Valsartan (Entresto 15-16 mg) 1 Cap Cap, 1 CAP PO BID for 30 Days, #60 CAP 0 Refills Prov:JOSE MARTIN FALK RESIDENT 09/27/24 Metoprolol Succinate (Metoprolol Succinate Er) 25 Mg Tab, 1 TAB PO DAILY for 30 Days, #30 TAB 0 Refills Prov:JOSE MARTIN FALK 09/27/24 Empagliflozin (Jardiance) 10 Mg Tab, 10 MG PO DAILY for 30 Days, #30 TAB 0 Refills Prov:JOSE MARTIN FALK [facility] 09/27/24 Atorvastatin Calcium (Lipitor) 40 Mg Tab, 1 TAB PO DAILY, #30 TAB 5 Refills Prov:JOSE MARTIN FALK 09/27/24 Aspirin (Aspirin Low Dose) 81 Mg Chw, 1 TAB PO DAILY, #30 TAB 0 Refills Prov:JOSE MARTIN FALK RESIDENT 09/27/24 Reported Medications Albuterol Sulfate (Albuterol Sulfate Hfa) 108 Mcg/Act Aer, 2 PUFF IN Q4-6HR PRN for 16 Days, #6.7 09/26/24 Hydroxyzine Pamoate (Hydroxyzine Pamoate) 25 Mg Cap, 1-2 CAP PO HS for 30 Days, #60 09/26/24 Sertraline Hcl (Sertraline Hcl) 50 Mg Tab, 1 TAB PO DAILY for 90 Days, #90 09/26/24 Atorvastatin Calcium (Lipitor) 20 Mg Tab, 1 TAB PO DAILY for 90 Days, #90 09/26/24 Information Source: Patient Mode of Arrival: Wheelchair Severity: Moderate Timing: Hours Duration: Since onset, Hours Prehospital treatment: None Location: Foot (Bilat) Mechanism: Spontaneous Onset Object: None Condition of Object: None Wound Type: None History of: None Associated Signs and Symptoms: Redness Past Medical History PAST MEDICAL HISTORY: Anxiety, CHF, Gallstones, High Lipids, HTN Surgical History: Tubal Ligation BASKET MAKER History: No Pertinent BASKET MAKER History Family History Family History: Reviewed,noncontributory to illness, Unknown Social History Smoker: Non-Smoker Alcohol: Denies ETOH Use Drugs: Denies Drug Use Lives In: Home Constitutional: denies: chills, diaphoresis, fatigue, fever, malaise, sweats, weakness, others EENTM: denies: blurred vision, double vision, ear bleeding, ear discharge, ear drainage, ear pain, ear ringing, eye pain, eye redness, hearing loss, mouth pain, mouth swelling, nasal discharge, nose bleeding, nose congestion, nose pain, photophobia, tearing, throat pain, throat swelling, voice changes, others Respiratory: denies: cough, hemoptysis, orthopnea, SOB at rest, shortness of breath, SOB with excertion, stridor, wheezing, others Cardiovascular: denies: chest pain, dizzy spells, diaphoresis, Dyspnea on exertion, edema, irregular heart beat, left arm pain, lightheadedness, palpitations, PND, syncope, others Gastrointestinal: denies: abdomen distended, abdominal pain, blood streaked bowels, constipated, diarrhea, dysphagia, difficulty swallowing, hematemesis, melena, nausea, poor appetite, poor fluid intake, rectal bleeding, rectal pain, vomiting, others Genitourinary: denies: abnormal vagina bleeding, burning, dyspareunia, dysuria, flank pain, frequency, hematuria, incontinence, pain, , vagina discharge, urgency, others Neurological: denies: dizziness, fainting, headache, left sided numbness, left sided weakness, numbness, paresthesia, pre-existing deficit, right sided numbness, right sided weakness, seizure, speech problems, tingling, tremors, weakness, others Musculoskeletal: denies: back pain, gout, joint pain, joint swelling, muscle pain, muscle stiffness, neck pain, others Integumetry: reports: rash (Bilateral feet); denies: bruises, change in color, change in hair/nails, dryness, laceration, lesions, lumps, wounds, others Allergic/Immunocompromised: denies: Difficulty Healing, Frequent Infections, Hives, Itching, others Hematologic/Lymphatic: denies: anemia, blood clots, easy bleeding, easy bruising, swollen glands, others Endocrine: denies: excessive hunger, excessive sweating, excessive thirst, excessive urination, flushing, intolerance to cold, intolerance to heat, u nexplained weight gain, unexplained weight loss, others Psychiatric: denies: anxiety, bipolar disorder, depression, hopeless, panic disorder, schizophrenia, sleepless, suicidal, others All Other Systems: Reviewed and Negative Physical Exam General Appearance: No Apparent Distress, Normal HEENT: Normal ENT Inspection, Pharynx Normal, TMs Normal Neck: Full Range of Motion, Non-Tender, Normal, Normal Inspection Respiratory: Chest Non-Tender, Lungs Clear, No Accessory Muscle Use, No Respiratory Distress, Normal Breath Sounds Cardiovascular: No Edema, No JVD, No Murmur, No Gallop, Normal Peripheral P ulses, Regular Rate/Rhythm Breast Exam: Deferred Gastrointestinal: No Organomegaly, Non Tender, No Pulsatile Mass, Normal Bowel Sounds, Soft Genitalia: Deferred Pelvic: Deferred Rectal: Deferred Extremities: No calf tenderness, Normal capillary refill, Normal inspection, Normal range of motion, Non-tender, No pedal edema Musculoskeletal : Apperance: Normal Neurologic: Alert, 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 Was a procedure done?: No Differential Diagnosis (INTG) Differential Diagnosis: Other X-Ray, Labs, Meds, VS Vital Signs Date Time Temp Pulse Resp B/P (MAP) Pulse Ox O2 Delivery O2 Flow Rate FiO2 05/28/25 12:00 98.0 69 20 161/80 94 98.0 Lab Test 05/28/25 12:48 Range/Units White Blood Count 9.9 4.4-10.8 10^3/uL Red Blood Count 4.32 4.0-5.20 10^6/uL Hemoglobin 14.0 12.2-16.2 g/dL Hematocrit 42.0 36.0-46.0 % Mean Corpuscular Volume 97.2 80.0-100.0 fL Mean Corpuscular Hemoglobin 32.4 H 28.0-32.0 pg Mean Corpuscular Hemoglobin Concent 33.3 32.0-36.0 g/dL Red Cell Distribution Width 12.7 11.8-14.3 % Platelet Count 179 140-450 10^3/uL Mean Platelet Volume 8.0 6.9-10.8 fL Neutrophils (%) (Auto) 52.3 37.0-80.0 % Lymphocytes (%) (Auto) 37.8 10.0-50.0 % Monocytes (%) (Auto) 9.0 0.0-12.0 % Eosinophils (%) (Auto) 0.6 0.0-7.0 % Basophils (%) (Auto) 0.3 0.0-2.0 % Neutrophils # (Auto) 5.2 1.6-8.6 10 ^3/uL Lymphocytes # (Auto) 3.7 0.4-5.4 10 ^3/uL Monocytes # (Auto) 0.9 0-1.3 10 ^3/uL Eosinophils # (Auto) 0.1 0-0.8 10 ^3/uL Basophils # (Auto) 0 0-0.2 10 ^3/uL Nucleated Red Blood Cells 0.0 % Sodium Level 140 136-145 mmol/L Potassium Level 3.8 3.5-5.1 mmol/L Chloride Level 104 98-107 mmol/L Carbon Dioxide Level 21 20-31 mmol/L Anion Gap 15 5-15 Blood Urea Nitrogen 20 9-23 mg/dL Creatinine 1.65 H 0.550-1.02 mg/dL Glomerular Filtration Rate Calc 31 >90 mL/min BUN/Creatinine Ratio 12.1 10.0-20.0 Serum Glucose 93 74-106 mg/dL Calcium Level 10.1 8.7-10.4 mg/dL X-Ray, Labs, Meds, VS Comment 79-year-old female presents to the ER in her wheelchair with a chief complaint of bilateral lower extremity pain. Patient arrives alert and oriented, ABC's intact, afebrile, vital signs stable, saturating well in room air Peripheral IV insertion+ labs were ordered. CBC was ordered to exclude anemia, blood loss, or infection. BMP was ordered to exclude electrolyte abnormalities, renal failure, dehydration, hyperglycemia Urinalysis was ordered to rule out UTI or hematuria. Patient was given: Diphenhydramine CAPSULE. Tolerated medications with no adverse reaction. On reevaluation, patient had symptomatic improvement. Patient is stable for discharge at this time. External notes reviewed. Test results and diagnostic imaging interpreted. All diagnostic findings, discharge care, education and instructions provided Follow-up with PCP in 2 to 3 days Patient verbalized understanding and agreed to treatment plan Vital signs stable, afebrile, no acute distress noted Patient ambulatory with strong steady gait Advised to return precautions for any new or worsening symptoms, return to ER immediately for re-evaluation Patient is aware that the purpose of this visit was for an acute medical emergency requiring emergent stabilization. Chronic conditions, including malignancies have not been ruled out. Patient is instructed to follow up with PCP as directed and discharge instructions for continued care and workup. If unable to arrange follow-up, patient is to return to the emergency department for reassessment. Patient (parent or legal guardian if applicable) was given verbal and written discharge instructions and acknowledges understanding. Additional MDM Review of External, Non-ED records: External records reviewed. Discussion with independent historian (EMS, family) history obtained from the patient/parents (if applicable) at bedside Chronic conditions affecting care: None Social determinants of health affecting care: None Consideration of admission (observation or admission): I considered escalation of care to admission for this patient, however given the reassuring workup, the patient is safe for outpatient management. Discussion with the Radiology: No Tests considered but not performed: Prescription medication considered but not given: 12 lead EKG interpretation: Time of 1ST Reevaluation: 13:15 Reevaluation 1ST: Unchanged Patient Education/Counseling: Diagnosis, Treatment, Prognosis Family Education/Counseling: No Family Present SEPSIS Sepsis Screen Date sepsis recognized/suspect: May 28, 2025 Time Sepsis recognized/suspect: 1200 Recent Procedure: No On Antibiotic Therapy: No Respiratory Rate >20: No Heart Rate >90: No Temp<36 C (96.8 F) or >38.3 C: No SBP <90 or MAP <65 mmHG: No New Acute Mental Status Change: No Is the patient on CPAP, BIPAP,: No Vital Signs Date Time Temp Pulse Resp B/P (MAP) Pulse Ox O2 Delivery O2 Flow Rate FiO2 05/28/25 12:00 98.0 69 20 161/80 94 98.0 Laboratory Tests Test 05/28/25 12:48 White Blood Count 9.9 10^3/uL (4.4-10.8) Departure 1 Departure Time of Disposition: 14:19 Impression: Primary Impression: Neuritis Disposition: 01 HOME / SELF CARE / HOMELESS Condition: Stable e-Prescriptions Gabapentin (Gabapentin) 100 Mg Cap 1 CAP PO QHSP PRN for 30 Days, #30 CAP 0 Refills Prov: OTTO CAMPOS NP 05/28/25 Hydroxyzine Hcl (Hydroxyzine Hcl) 10 Mg Tab 10 MG PO Q8HP PRN for 10 Days, #30 TAB 0 Refills Prov: OTTO CAMPOS NP 05/28/25 Discharged With: Self Critical Care Note Critical Care Time?: No Stability Stability form required: No Heart Score Heart Score: Heart Score Response (Comments) Value History N/A 0 EKG N/A 0 Age N/A 0 Risk Factors N/A 0 Troponin N/A 0 Total 0 I personally scribed for OTTO CAMPOS NP ([email or web address]) on 05/28/25 at 12:50. Electronically submitted by Nemesio Disla ([email or web address]). OTTO CAMPOS NP May 28, 2025 12:50
[2025-05-28 13:05] LABS: Hematocrit 42.0 % (36.0-46.0); Hemoglobin 14.0 g/dL (12.2-16.2); Mean Corpuscular Hemoglobin 32.4 pg (28.0-32.0); Mean Corpuscular Volume 97.2 fL (80.0-100.0); Nucleated Red Blood Cells % 0.0 %
[2025-05-28 13:15] LABS: Chloride 104 mmol/L (98-107); Potassium 3.8 mmol/L (3.5-5.1); Sodium 140 mmol/L (136-145)
[2025-05-28 13:17] LABS: Anion Gap 15 (5-15); Calcium 10.1 mg/dL (8.7-10.4); Carbon Dioxide 21 mmol/L (20-31)
[2025-05-28 13:22] LABS: BUN/Creatinine Ratio 12.1 (10.0-20.0); Blood Urea Nitrogen 20 mg/dL (9-23); Glucose 93 mg/dL (74-106)
[2025-05-28] MEDS ORDERED: HYDRX10T PO (14:19)
[2025-05-28] MEDS ORDERED: GABA-1308 PO (14:20)
== END 2025-05-28 14:30 | disposition home or self-care (01) ==
LOC: ER 11:59
DX: M79.2 Neuralgia and neuritis, unspecified (principal); I11.0 Hypertensive heart disease with heart failure; I50.9 Heart failure, unspecified; F41.9 Anxiety disorder, unspecified; Z79.84 Long term (current) use of oral hypoglycemic drugs; Z79.899 Other long term (current) drug therapy; Z98.51 Tubal ligation status
CPT/HCPCS: 36415; 80048; 85025